=== PATIENT | male | born 1955 | race Caucasian/White ===

== ENCOUNTER 2018-03-13 10:27 | Inpatient (IN) ==
[2018-03-13] MEDS ORDERED: Azithromycin 500 MG in D5% in Water 250 ML IVPB ONE (10:43)
[2018-03-13] MEDS ORDERED: Ipratropium/Albuterol Neb 3 ML IH ONE (10:43)
[2018-03-13] MEDS ORDERED: 0.9 % Sodium Chloride 1,000 ML IVC ONE (10:43)
[2018-03-13] MEDS ORDERED: methylPREDNISolone 125 MG/2 ML VIAL IVP ONE (10:43)
[2018-03-13] MEDS ORDERED: cefTRIAXone 1,000 MG in Water for inj. (sterile) 20 ML 10 ML IVP ONE (10:43)
[2018-03-13] MEDS ORDERED: Isovue-370 500 ML INFUS..BTL IV ONE (10:44)
[2018-03-13 12:32] LABS: Red Cell Distribution Width 12.3 % (11.5-14.5)
[2018-03-13 12:37] LABS: Basophils % 0.8 %; Eosinophils # 0.1 K/mcL (0.0-0.6); Eosinophils % 1.3 %; Hematocrit 32.6 % (37.5-50.1); Hemoglobin 12.2 g/dL (12.9-16.9); Immature Granulocytes % 1.1 % (0-4); Lymphocytes # 0.7 K/mcL (0.6-4.6); Lymphocytes % 13.8 %; Mean Corpuscular Hemoglobin 32.5 pg (28.0-33.3); Mean Corpuscular Volume 86.9 fL (83.0-100.0); Mean Platelet Volume 8.1 fL (9.4-12.4); Monocytes # 0.8 K/mcL (0.0-1.3); Monocytes % 15.3 %; Neutrophils # 3.6 K/mcL (1.6-8.9); Platelet Count 262 K/mcL (140-400); Red Blood Count 3.75 M/mcL (4.19-5.50); Segmented Neutrophils % 67.7 %
[2018-03-13 12:43] LABS: INR 1.1; Prothrombin Time 12.4 Seconds (9.4-12.1)
[2018-03-13 13:00] LABS: Troponin I < 0.03 ng/mL (< 0.04)
--- NOTE | 2018-03-13 13:15 | Emergency Department Note ---
Disposition Clinical Impression: Hyponatremia, Hypochloremia, Alcohol abuse, Tobacco abuse Disposition: Admitted As Inpatient Condition: Fair Referrals: Luther Figueroa DO [Primary Care Provider] - Time of Disposition: 14:33 SOB HPI - General Chief Complaint: ED Shortness of Breath/Dyspnea Stated Complaint: JOAQUIN,"low bp" Time Seen by Provider: 03/13/18 10:43 Source: patient Mode of arrival: ambulatory Limitations: no limitations Nursing Notes Reviewed: Yes Vital Signs Reviewed: Yes - History of Present Illness Patient presents emergency room by personal vehicle for evaluation of shortness of breath uneasy feeling chest pressure and tightness as well as lightheaded and dizziness. Patient has felt like he has not been able to get his air all morning today. He denies any history of cardiac related illness or disease. Denies any trauma or injury. Currently denying any nausea vomiting or diarrhea , fevers, chills, chest pain at this time. Patient has no other complaints but does appear to be in some respiratory distress and very uncomfortable. 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: moderate Consistency/Duration: intermittent Improves with: nothing Worsens with: exertion Associated symptoms: Reports: chest pain, cough, sputum production, orthopnea Treatment prior to arrival: none - Related Data Home Medications Medication Instructions Recorded Confirmed Losartan 12/27/17 Previous Rx's Medication Instructions Recorded Albuterol Sulfate [Albuterol 2 puff IH Q4HR #1 hfa.aer.ad 12/27/17 Inhaler] Azithromycin [Azithromycin 6-Tab 250 mg PO PER PKG DI #6 tab 12/27/17 Pack] Benzonatate [Tessalon] 100 mg PO TID #15 capsule 12/27/17 PredniSONE [Deltasone] 20 mg PO DAILY #12 tablet 12/27/17 Allergies Allergy/AdvReac Type Severity Reaction Status Date / Time No Known Allergies Allergy Verified 03/13/18 10:31 Review of Systems: As Per HPI Constitutional: Denies: fever, chills, weakness Cardiovascular: Reports: chest pain, dyspnea on exertion, orthopnea. Denies: palpitations, edema Respiratory: Reports: cough Gastrointestinal: Denies: abdominal pain, nausea, vomiting, diarrhea Genitourinary: Denies: dysuria, frequency Musculoskeletal: Denies: back pain, neck pain Integumentary: Denies: rash, abrasion Neurological: Reports: weakness. Denies: headache Endocrine: Reports: fatigue Past Medical History - Past Medical History Attestation: Yes The following information was validated with the patient. Source: patient Medical history: Reports: non-contributory, hypertension Psychiatric history: Reports: no psych history - Social History Smoking Status: Current every day smoker Smokeless Tobacco Status: No Alcohol use: Reports: occasionally Drug use: Reports: none Physical Exam - General Limitations: no limitations General appearance: alert, in no apparent distress - Head Head exam: atraumatic, normocephalic, normal inspection - ENT ENT exam: normal exam, normal oropharynx, mucous membranes moist - Neck Neck exam: Present: normal inspection, full ROM, trachea midline. Absent: tenderness, lymphadenopathy - Chest Chest inspection: Present: normal inspection, symmetric chest wall rise. Absent : tenderness - Respiratory Respiratory exam: Present: normal lung sounds bilaterally, respiratory distress. Absent: wheezes, stridor, accessory muscle use - Cardiovascular Cardiovascular exam: Present: regular rate, normal rhythm, normal heart sounds - Abdominal Exam Abdominal exam: Present: soft, Non-Tender, normal bowel sounds. Absent: tenderness, distention, guarding, rebound, rigidity, Bonilla's sign, Rovsing's sign, tenderness at McBurney's Point - Extremities Exam Extremities exam: Present: normal inspection, full ROM, normal capillary refill. Absent: tenderness, pedal edema - Back Exam Back exam: Present: normal inspection, full ROM. Absent: tenderness - Neurological Exam Neurological exam: Present: alert, oriented X3, CN II-XII intact, normal gait - Skin Skin exam: Present: warm, dry, intact, normal color Course Course Narrative: Patient seen and examined the time of arrival. See history of present illness. 62-year-old male presents emergency room to Uncomfortable and tachycardic. He is diaphoretic on presentation. Is describing an unsettling sensation across his chest wall with pressure and discomfort that goes into his abdomen. Patient has no other medical history except for hypertension for which he takes 1 medication at home. He denies any recent illnesses. Denies any trauma. Denies any headache vision changes nausea vomiting or diarrhea. The onset of the symptoms of this morning including a chest pressure but no specific pain along with the persistent shortness of breath. Patient on my evaluation appears to be in some moderate distress most likely from a combination of anxiety, abnormal sensations and chest as well as abdomen. Lungs have coarse breath sounds at the left sided to clear when he coughs. to auscultation heart is regular. Abdomen is soft. He does describe some discomfort. There is no point tenderness guarding or rigidity. Patient is conversational without any dyspnea. His vital signs are stable and evaluation. Patient is afebrile. Patient ambulate around the emergency room without any difficulty. He denies any other medical issues trauma or injury at this point. Screening labs will be completed CBC chemistry was EKG troponin chest x-ray. 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 Patient is hemodynamically stable at this point. CT was called this time the patient with her lab without any renal function testing and this point. Disposition to be determined once full demonstrated. Patient had EKG and labs reviewed. - Reevaluation(s) Reevaluation #1: Initial EKG was read by the computer as possible inferior myocardial infarction. There appears to be some wandering nautical conduction related issues. Patient has not had any chest pain. The hydraulic billet maker Dr. Sheffield was in the emergency room at that time and I did review it with him at approximately 1100 hrs. he agreed to continue symptomatic control for the other issues and repeat EKG and trend troponins. Patient does not require any acute intervention at this point. EKG was repeated at 1200 hours showing sinus rhythm with a stable first-degree heart block with no other acute pathology. No acute signs of ST segment elevation CT angiography the chest and abdomen are unremarkable for acute signs of aneurysm or dissection. Patient's labs are still pending. Disposition to be determined. Patient was started on antibiotics secondary to bronchitis read on the CT scan patient does have a stable soft nodule in the left lung that is never been evaluated. Time: 11:25 Reevaluation #2: Labs are resulted showing patient has profound hyponatremia, hypochloremia. This information was discussed with the on-call electrical electronics engineers Dr. Aguilera. Labs were reviewed as well as recommendations for serum osmolality, serum uric acid, urine osmolality and urine sodium. These labs were added on. Patient will be admitted to the ICU for management. Repeat labs were drawn to confirm that this was not appropriate laboratory evaluation not a lab air. Patient is otherwise clinically stable in no distress. Nephrology did recommend maintenance fluids being started with normal saline and slow correction of the sodium at this time. Nephrology nurse practitioner was done at the bedside and was discussed with the patient and despite multiple conversations in the past the patient did disclose to the electrical electronics engineers that he does drink approximately 6 beers a day as well as smokes approximately 10 cigarettes a day. He did not discloses an initial evaluations in conversations we had at the bedside. Patient is concerning for SIADH as well as other pathology for the hyponatremia. Patient will be admitted at this time Time: 14:28 Vital Signs Temperature 97.4 F L 03/13/18 10:32 Pulse Rate 82 03/13/18 10:32 Respiratory Rate 32 03/13/18 10:32 Blood Pressure 139/87 03/13/18 10:32 O2 Sat by Pulse Oximetry 100 03/13/18 10:32 Temperature 97.4 F L 03/13/18 11:14 Pulse Rate 78 03/13/18 13:05 Respiratory Rate 18 03/13/18 13:05 Blood Pressure 155/90 03/13/18 13:05 O2 Sat by Pulse Oximetry 99 03/13/18 13:05 Oxygen Delivery Oxygen Delivery Room Air Shortness of Breath/Dyspnea - MDM Narrative Medical decision making narrative: Hyponatremia, chest tightness - Medical Records Medical records reviewed: Yes I reviewed the patient's medical records. - Lab Data Lab results reviewed: Yes I reviewed the patient's lab results. Lab Results 03/13/18 03/13/18 03/13/18 Range/Units 12:18 12:18 12:18 PT 12.4 H (9.4-12.1) Seconds INR 1.1 APTT 30.0 (26.0-36.0) Seconds Lactic Acid 1.1 (0.5-2.2) mmol/L Troponin I < 0.03 (< 0.04) ng/mL B-Natriuretic Peptide (Less than 100) pg/mL 03/13/18 Range/Units 12:18 PT (9.4-12.1) Seconds INR APTT (26.0-36.0) Seconds Lactic Acid (0.5-2.2) mmol/L Troponin I (< 0.04) ng/mL B-Natriuretic Peptide 33 (Less than 100) pg/mL - Radiology Data Radiology results reviewed: Yes I reviewed the patient's radiology results. CT angiography the chest and abdomen are unremarkable for acute pathology this time. - EKG Data EKG attestation: Yes I reviewed and interpreted this EKG. EKG results narrative: EKG shows sinus rhythm. Ventricular rate of 75. [place] interval 201. QRS duration of 125. QTC of 437. [place] appears to be normal. Concern for slight elevation in leads 23 aVF. No reciprocal changes noted. Also slight elevation in V5 V6. This EKG was reviewed with the hydraulic billet maker Dr. Sheffield at 1050. No acute STEMI called at that time. Recommended continue evaluation. EKG #2. EKG shows sinus rhythm with a ventricular rate is 74. [place] interval 217. QRS duration 110. QTC of 447. [place] is remain stable. No acute signs of ST segment elevation or abnormality. No acute signs of WPW or Brugada syndrome. No comparable EKGs for evaluation.
[2018-03-13 13:22] LABS: BUN/Creatinine Ratio 11 (6-26); Blood Urea Nitrogen 10 mg/dL (8-23); Calcium 8.9 mg/dL (8.6-10.3); Carbon Dioxide 22 mEq/L (23-29); Chloride 78 mEq/L (98-107); Glucose 97 mg/dL (70-105); Osmolality,Calculated 229 (280-300); Potassium 3.3 mEq/L (3.5-5.1); Sodium 110 mEq/L (136-145); eGFR For African Americans > 60 (> 60); eGFR For Non-African Americans > 60 (> 60)
[2018-03-13 13:46] LABS: Mean Corpuscular HGB Conc 37.4 g/dL (31.6-35.5)
[2018-03-13] MEDS ORDERED: 0.9 % Sodium Chloride 1,000 ML IVC SCH ×2 (14:00→21:48)
[2018-03-13] MEDS ORDERED: Thiamine (B-1) 100 MG in D5% in Water 50 ML IVPB STA (14:30)
[2018-03-13 14:31] LABS: BUN/Creatinine Ratio 11 (6-26); Blood Urea Nitrogen 10 mg/dL (8-23); Calcium 9.2 mg/dL (8.6-10.3); Carbon Dioxide 24 mEq/L (23-29); Chloride 79 mEq/L (98-107); Glucose 126 mg/dL (70-105); Osmolality,Calculated 233 (280-300); Potassium 3.6 mEq/L (3.5-5.1); Sodium 111 mEq/L (136-145); eGFR For African Americans > 60 (> 60); eGFR For Non-African Americans > 60 (> 60)
[2018-03-13] MEDS ORDERED: Folic Acid 1 MG in D5% in Water 50 ML IVPB STA (14:31)
--- NOTE | 2018-03-13 14:53 | Nephrology Consult Note ---
Date of Encounter: 03/13/18 Time of Encounter: 14:38 Assessment and Plan (1) Hyponatremia Current Visit: Yes Status: Acute Will check NA at 1700, and then trend accordingly. NS @ 125/hr. Serum and urine studies pending. (2) Hypochloremia Current Visit: Yes Status: Acute Per primary team. History of Present Illness - Reason for Consult Consult date: 03/13/18 hyponatremia Requesting physician: Jim Benjamin - Chief Complaint Feeling Lightheaded and dizziness. - History of Present Illness Mr. Noonan is a 62 year old Male who presented to the ED for shortness of breath and an "uneasy" feeling in his chest. PMH: HTN. Denies any of those symptoms upon examination. Denies nausea/vomiting/diarrhea. Has not seen a nephologist in the past. No family history of kidney problems that he knows of. Initial NA was 110, repeat was 111. Did receive a liter bolus, maintenance fluid at 125 has been ordered. No recent medication changes, denies any OTC or herbal medications. Admits to cutting back with both ETOH and cigarettes recently. Admits to 6 beers a day almost every day and 10-12 cigarettes a day. Will be careful with NA replacement, will not replace more than 6-8 meq's in a 24 hour period. No signs of dehydration, serum labs and urine studies pending. Past Med Surg Social Fam HX - Past Medical History Medical history: non-contributory, hypertension Psychiatric history: no psych history - Social History Smoking Status: Current every day smoker Smokeless Tobacco Status: No Alcohol use: occasionally Drug use: none Medications and Allergies Albuterol Sulfate [Albuterol Inhaler] 2 puff IH Q4HR #1 hfa.aer.ad 12/27/17 [Rx] Azithromycin [Azithromycin 6-Tab Pack] 250 mg PO PER PKG DI #6 tab 12/27/17 [Rx] Benzonatate [Tessalon] 100 mg PO TID #15 capsule 12/27/17 [Rx] Losartan 12/27/17 [History] PredniSONE [Deltasone] 20 mg PO DAILY #12 tablet 12/27/17 [Rx] 3 Allergy/AdvReac Type Severity Reaction Status Date / Time No Known Allergies Allergy Verified 03/13/18 10:31 Review of Systems ROS unobtainable: other (as per HPI) Exam - Vital Signs Vital signs: Initial Vital Signs Temp Pulse Resp BP Pulse Ox 97.4 F L 82 32 139/87 100 03/13/18 10:32 03/13/18 10:32 03/13/18 10:32 03/13/18 10:32 03/13/18 10:32 Vital Signs - Last 8 Hours Temp Pulse Resp BP Pulse Ox 03/13/18 13:40 81 18 152/90 98 03/13/18 13:05 78 18 155/90 99 03/13/18 11:50 14 100 03/13/18 11:18 76 18 107/84 99 03/13/18 11:14 97.4 F L 82 32 139/87 100 03/13/18 10:32 97.4 F L 82 32 139/87 100 Intake and Output 03/12/18 03/13/18 03/13/18 23:59 07:59 15:59 Intake Total 1010 / 1010 Balance 1010 / 1010 Intake: IV Fluids 1010 / 1010 0.9 % Sodium Chloride 1,000 ML 1000 / 1000 @ 3750 mls/hr IVC .Q16M ONE Rx# :[id number] Rocephin 1,000 MG In Water for inj. (sterile) 10 ML @ 600 mls/ hr IVP ONCE ONE Rx#:[id number] Other: Weight 92.986 kg Patient Weight 03/13/18 23:59 Weight 92.986 kg - General Appearance General appearance: well-developed, well-nourished, appears started age EENT: ATNC, hearing intact, vision intact Neck: supple Respiratory: clear Cardiology: no edema, normal S1, normal S2 Gastrointestinal: normoactive bowel sounds, no tenderness, no guarding Integumentary: no rash, warm and dry Neurologic: alert and oriented x3 Psychiatric: mood/affect appropriate, cooperative Results - Lab Results 03/13/18 12:18 03/13/18 13:42 Most recent lab results Calcium 9.2 mg/dL (8.6-10.3) 03/13/18 13:42 Consult Discharge Plan - Plan Referrals: Luther Figueroa DO [Primary Care Provider] -
[2018-03-13 15:47] LABS: Thyroid Stimulating Hormone 1.167 mcIU/mL (0.340-5.600); Uric Acid 2.5 mg/dL (2.3-7.6)
--- NOTE | 2018-03-13 15:59 | Pulmonology History & Physical ---
<JazmynmackGiana chavez M - Last Filed: 03/13/18 16:13> Date of Encounter: 03/13/18 History of Present Illness HPI: Mr. Noonan is a 62 year old male Medications and Allergies Cetirizine HCl [All Day Allergy] 10 mg PO DAILY PRN 03/13/18 [History] Losartan/Hydrochlorothiazide [Losartan-Hctz 100-25 mg Tab] 1 tab PO DAILY [History] 3 Allergy/AdvReac Type Severity Reaction Status Date / Time No Known Allergies Allergy Verified 03/13/18 15:30 All Systems: The remainder of the systems were reviewed and are negative Physical Examination Vital Signs: Vital Signs, Last 4 Hours Pulse Resp BP Pulse Ox 03/13/18 16:12 82 18 144/92 99 Results - Laboratory Findings CBC and BMP: 03/13/18 12:18 03/13/18 13:42 PT/INR, D-dimer PT 12.4 Seconds (9.4-12.1) H 03/13/18 12:18 Abnormal lab findings: Abnormal lab results RBC 3.75 M/mcL (4.19-5.50) L 03/13/18 12:18 Hgb 12.2 g/dL (12.9-16.9) L 03/13/18 12:18 Hct 32.6 % (37.5-50.1) L 03/13/18 12:18 MCHC 37.4 g/dL (31.6-35.5) H 03/13/18 12:18 MPV 8.1 fL (9.4-12.4) L 03/13/18 12:18 PT 12.4 Seconds (9.4-12.1) H 03/13/18 12:18 Sodium 111 mEq/L (136-145) L* 03/13/18 13:42 Chloride 79 mEq/L (98-107) L 03/13/18 13:42 Glucose 126 mg/dL (70-105) H 03/13/18 13:42 Serum Osmolality 245 mOsm/kg (280-300) L 03/13/18 15:01 Calculated Osmolality 233 (280-300) L 03/13/18 13:42 - Attending Attestation I examined this patient and my medical decision-making was reviewed with the Resident Physician. I agree with the documented findings, disposition and treatment plan as described except to the extent set forth below. Patient seen and examined. Labs, radiology, chart personally reviewed. Agree with resident's history and physical, assessment, plan with following comments: SUPERVISOR STATEMENT CLERKS: Patient follows commands, Pulmonary: Acceptable oxygenation and ventilation Cardiovascular: stable GI: Nutrition per dietary and GI prophylaxis per routine Heme: DVT prophylaxis per routine Renal; urine out put and renal funtion reviewed. Patient with hyponatremia which is most likely secondary to history of alcohol and advised patient to avoid drinking excessive water and also alcohol and there is also possibility of hypovolemia hypernatremia. Agree with nephrology recommendations. Patient will be monitored in ICU and frequent checking of his sodium level to avoid overcorrection more than 10-12 milliequivalent correction over 24 hours. Patient may need 3% sodium chloride if he does not respond appropriately. Endorcine: blood glucose is monitored Lines: all lines checked and no evidence of infections Skin: skin care to prevent pressure ulcers per nursing routine care Discussed with patient and his family at the bedside. <Jonathan George - Last Filed: 03/13/18 19:41> Date of Encounter: 03/13/18 Time of Encounter: 15:59 Assessment and Plan (1) Hyponatremia Current visit: Yes Status: Acute - Noted sodium of 110 on presentation to emergency room - Possible etiologies including beer potomania vs SIADH - Urine studies pending, osm and Na - Nephrology consulted in the emergency department, appreciate recommendations - Euvolemic on exam - Started on NS at 125mL/hr Plan - Continue NS at 125/hr - Sodium checks q2 hours - Fluid restrict of 1.5L/day - Goal Na of 118 by AM, will adjust accordingly. (2) Hypertension Current visit: Yes Status: Chronic - History of hypertension controlled with lisinopril/hydrochlorothiazide - Holding in the setting of hyponatremia, hypochloremia - We will add hydralazine 10 mg every 6 hours when necessary to control blood pressure Qualifiers: Hypertension type: essential hypertension Qualified Code(s): I10 - Essential (primary) hypertension (3) Hypochloremia Current visit: Yes Status: Acute - Chloride of 79, unclear etiology aside from possible beer potomania as above. - Getting NS at 125/hr - Will continue to monitor. (4) Alcohol abuse Current visit: Yes Status: Acute - As above for hyponatremia - CIWA protocol - Last drink yesterday - No history of withdrawal (5) Tobacco abuse Current visit: Yes Status: Acute - Patient states that his cut down to approximately 6-10 cigarettes per day - Encouraged to quit, patient considering (6) DVT prophylaxis Current visit: Yes Status: Acute Subcutaneous heparin History of Present Illness Chief complaint: weakness, lightheaded HPI: Mr. Noonan is a 62 year old male with past medical history of hypertension presents to emergency room with complaint of weakness, lightheadedness, muscle aches. He states that the muscle aches from present for the past month and the weakness and lightheadedness since this morning. He states that he was drinking a cup of coffee and began to experience stars in his vision and felt weak and like he was going to pass out. At that time he called and his was working in the yard and stated that he felt like "he was going to ". He states that he never lost consciousness however when transitioning to a wheelchair coming to the emergency room he felt extremely weak at that time. He has never expresses symptoms in the past. No preceding symptoms and nothing makes it better or worse. Denies any symptoms of chest pain, palpitations, shortness breath, nausea, vomiting, diarrhea, hematochezia, melena, numbness or tingling. Denies any symptoms of confusion. He states that at this time, he is asymptomatic aside for some residual weakness. He denies any past medical history aside from his high blood pressure. Admits to tobacco abuse smoking approximately 6-10 cigarettes per day. Also admits to alcohol abuse drinking somewhere from 6-10 beers per day. He was previously drinking more but states it never went over 12 beers per day. In the emergency room, vitals were unremarkable. Labs were significant for anemia with H/H 12.2/32.6, sodium of 110, potassium 3.3, osmolality of 245. Remainder of labs within normal limits. CTA was performed in emergency department and showed mild central bronchial wall thickening, 3 mm nodule, otherwise no acute findings. Nephrology was consulted emergency department. He was admitted to the ICU for further management of hyponatremia Past Med Surg Social Fam HX - Past Medical History Medical history: non-contributory, hypertension Psychiatric history: no psych history - Social History Smoking Status: Current every day smoker Smokeless Tobacco Status: No Alcohol use: occasionally Drug use: none All Systems: The remainder of the systems were reviewed and are negative Review of Systems: - Constitutional: Admits to generalized fatigue, weakness. Denies fevers, chills, weight loss, - EENT: Admits to vision changes. Denies tinnitus, auditory changes, rhinorrhea , congestion, sore throat, odynaphagia - CVS: Denies chest pain, palpitations, PEDRO, orthopnea, edema, PND, - Pulm: Denies SOB, cough, sputum, hematemesis, wheezing - GI: Denies abdominal pain, anorexia, nausea, vomiting, diarrhea, constipation , melena - : Denies dysuria, increased frequency, urgency, hematuria, - Skin: Denies rashes, ulcers, color changes, - Neuro: Denies MORAN, paresthesias, focal deficits, ataxia, Physical Examination Gen.: Vitals noted. No acute distress. AAOx3 HEENT: PERRL/EOMI, oropharynx clear, Normocephalic, atraumatic, MMM Cardiac: RRR, no murmur, +S1/S2 Pulmonary: Mild wheezes on left, otherwise clear to auscultation, equal chest expansion Abdomen: soft, nontender, BS noted, no guarding, no rebound. MSK: ROM intact, no joint swelling noted Extremities: no BLE edema, nontender calf, no cyanosis or clubbing Neuro: A&Ox3, moves all extremities, no focal deficits Psych: Appropriate mood and behavior Results - Laboratory Findings CBC and BMP: 03/13/18 12:18 03/13/18 17:55 PT/INR, D-dimer PT 12.4 Seconds (9.4-12.1) H 03/13/18 12:18 Abnormal lab findings: Abnormal lab results RBC 3.75 M/mcL (4.19-5.50) L 03/13/18 12:18 Hgb 12.2 g/dL (12.9-16.9) L 03/13/18 12:18 Hct 32.6 % (37.5-50.1) L 03/13/18 12:18 MCHC 37.4 g/dL (31.6-35.5) H 03/13/18 12:18 MPV 8.1 fL (9.4-12.4) L 03/13/18 12:18 PT 12.4 Seconds (9.4-12.1) H 03/13/18 12:18 Sodium 111 mEq/L (136-145) L* 03/13/18 13:42 Chloride 79 mEq/L (98-107) L 03/13/18 13:42 Glucose 126 mg/dL (70-105) H 03/13/18 13:42 Calculated Osmolality 233 (280-300) L 03/13/18 13:42
[2018-03-13] MEDS ORDERED: hydrALAZINE 10 MG TABLET PO PRN (19:26)
[2018-03-13] MEDS ORDERED: Naloxone 0.4 MG/ML INJ IVP PRN (19:30)
[2018-03-13] MEDS ORDERED: Acetaminophen 325 MG TABLET PO PRN (19:30)
[2018-03-14 04:25] LABS: Basophils % 0.1 %
[2018-03-14 04:27] LABS: Eosinophils % 0.1 %; Hematocrit 33.5 % (37.5-50.1); Hemoglobin 12.3 g/dL (12.9-16.9); Immature Granulocytes % 0.6 % (0-4); Lymphocytes # 0.6 K/mcL (0.6-4.6); Lymphocytes % 7.4 %; Mean Corpuscular HGB Conc 36.7 g/dL (31.6-35.5); Mean Corpuscular Hemoglobin 31.8 pg (28.0-33.3); Mean Corpuscular Volume 86.6 fL (83.0-100.0); Mean Platelet Volume 8.2 fL (9.4-12.4); Monocytes # 0.8 K/mcL (0.0-1.3); Monocytes % 9.2 %; Platelet Count 310 K/mcL (140-400); Red Blood Count 3.87 M/mcL (4.19-5.50); Red Cell Distribution Width 12.3 % (11.5-14.5); Segmented Neutrophils % 82.6 %
[2018-03-14 04:29] LABS: Neutrophils # 6.9 K/mcL (1.6-8.9)
[2018-03-14 04:58] LABS: BUN/Creatinine Ratio 17 (6-26); Blood Urea Nitrogen 15 mg/dL (8-23); Calcium 9.7 mg/dL (8.6-10.3); Carbon Dioxide 23 mEq/L (23-29); Chloride 88 mEq/L (98-107); Glucose 132 mg/dL (70-105); Magnesium 1.7 mg/dL (1.6-2.6); Osmolality,Calculated 251 (280-300); Phosphorous 2.1 mg/dL (2.7-4.5); Potassium 3.7 mEq/L (3.5-5.1); Sodium 119 mEq/L (136-145); eGFR For African Americans > 60 (> 60); eGFR For Non-African Americans > 60 (> 60)
[2018-03-14] MEDS ORDERED: *HR* Heparin 5,000 UNIT/ML VIAL SQ SCH (06:00)
--- NOTE | 2018-03-14 07:04 | Electrocardiograph Report ---
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
--- NOTE | 2018-03-14 07:06 | Electrocardiograph Report ---
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
[2018-03-14] MEDS ORDERED: *HR* LORazepam 2 MG/ML VIAL IVP PRN ×2 (08:42→09:25)
--- NOTE | 2018-03-14 08:45 | Pulmonology Progress Note ---
<Jonathan George - Last Filed: 03/14/18 13:20> Date of Encounter: 03/14/18 Time of Encounter: 08:45 Assessment and Plan (1) Hyponatremia Current Visit: Yes Status: Acute - Noted sodium of 110 on presentation to emergency room, improved to 121 this morning - Possible etiologies including beer potomania vs SIADH versus hydrochlorothiazide home medication - Urine studies show low osmolality of 163 and urine sodium of 23.1 - Nephrology consulted in the emergency department, appreciate recommendations - Euvolemic on exam - Started on NS at 125mL/hr which was stopped last evening due to sodium rising 11 and 19 hours Plan - Discussed with nephrology - Continue NS at 75/hr, sodium replacement tablets - Sodium checks q6 hours - Fluid restrict of 1.5L/day - Goal Na of 132 by AM, will adjust accordingly. (2) Hypertension Current Visit: Yes Status: Chronic - History of hypertension controlled with lisinopril/hydrochlorothiazide - Holding in the setting of hyponatremia, hypochloremia - We will add hydralazine 10 mg every 6 hours when necessary to control blood pressure Qualifiers: Hypertension type: essential hypertension Qualified Code(s): I10 - Essential (primary) hypertension (3) Hypochloremia Current Visit: Yes Status: Acute - Chloride of 79, unclear etiology aside from possible beer potomania as above. - Improved today - Getting NS at 75/hr - Will continue to monitor. (4) Alcohol abuse Current Visit: Yes Status: Acute - As above for hyponatremia - CIWA protocol - Last drink on day of admission - No history of withdrawal - Vitamin replacement (5) Tobacco abuse Current Visit: Yes Status: Acute - Patient states that his cut down to approximately 6-10 cigarettes per day - Encouraged to quit, patient considering - Nicotine patch (6) DVT prophylaxis Current Visit: Yes Status: Acute Subcutaneous heparin Subjective Principal diagnosis: Hyponatremia Interval history: Patient was seen and examined at bedside this morning. He states that overall he feels back to his normal self. No complaints of dizziness, weakness, nausea , vomiting, chest pain, shortness of breath. Discussion was had this morning about both smoking and alcohol cessation. He states that he is eager to quit smoking and possible for cutting back on alcohol. Objective PUL Vital signs: Last Vital Signs Temp 98.0 F 03/14/18 08:00 Pulse 96 03/14/18 08:00 Resp 18 03/14/18 08:00 BP 155/105 03/14/18 08:00 Pulse Ox 98 03/14/18 08:00 Gen.: Vitals noted. No acute distress. AAOx3 HEENT: PERRL/EOMI, oropharynx clear, Normocephalic, atraumatic, MMM Cardiac: RRR, no murmur, +S1/S2 Pulmonary: CTA bilaterally, no wheezes, rales or rhonchi, equal chest expansion Abdomen: soft, nontender, BS noted, no guarding, no rebound. MSK: ROM intact, no joint swelling noted Extremities: no BLE edema, nontender calf, no cyanosis or clubbing, ganglion cyst present on right wrist Neuro: A&Ox3, moves all extremities, no focal deficits Psych: Appropriate mood and behavior Results - Laboratory Findings CBC and BMP: 03/14/18 03:57 03/14/18 10:38 PT/INR, D-dimer PT 12.4 Seconds (9.4-12.1) H 03/13/18 12:18 Abnormal lab findings: Abnormal lab results RBC 3.87 M/mcL (4.19-5.50) L 03/14/18 03:57 Hgb 12.3 g/dL (12.9-16.9) L 03/14/18 03:57 Hct 33.5 % (37.5-50.1) L 03/14/18 03:57 MCHC 36.7 g/dL (31.6-35.5) H 03/14/18 03:57 MPV 8.2 fL (9.4-12.4) L 03/14/18 03:57 PT 12.4 Seconds (9.4-12.1) H 03/13/18 12:18 Sodium 121 mEq/L (136-145) L 03/14/18 07:30 Chloride 88 mEq/L (98-107) L 03/14/18 03:57 Glucose 132 mg/dL (70-105) H 03/14/18 03:57 POC Glucose 181 mg/dL (70-99) H 03/13/18 17:38 Serum Osmolality 245 mOsm/kg (280-300) L 03/13/18 15:01 Calculated Osmolality 251 (280-300) L 03/14/18 03:57 Phosphorus 2.1 mg/dL (2.7-4.5) L 03/14/18 03:57 Urine Osmolality 163 mOsm/kg (300-1090) L 03/13/18 22:39 - Clinical Findings Intake & Output: Intake & Output 03/13/18 03/14/18 03/14/18 23:59 07:59 15:59 Intake Total 688 / 688 568 / 568 Output Total 1175 / 1175 770 / 770 Balance -487 / -487 -202 / -202 Weight 92.6 kg 92.6 kg Consult Discharge Plan - Plan Referrals: Luther Figueroa, DO [Primary Care Provider] - <Giana So - Last Filed: 03/14/18 16:36> Date of Encounter: 03/14/18 Objective PUL Vital signs: Last Vital Signs Temp 98.5 F 03/14/18 15:59 Pulse 92 03/14/18 15:59 Resp 18 03/14/18 15:59 BP 140/90 03/14/18 15:59 Pulse Ox 93 03/14/18 15:59 Results - Laboratory Findings CBC and BMP: 03/14/18 03:57 03/14/18 10:38 PT/INR, D-dimer PT 12.4 Seconds (9.4-12.1) H 03/13/18 12:18 Abnormal lab findings: Abnormal lab results RBC 3.87 M/mcL (4.19-5.50) L 03/14/18 03:57 Hgb 12.3 g/dL (12.9-16.9) L 03/14/18 03:57 Hct 33.5 % (37.5-50.1) L 03/14/18 03:57 MCHC 36.7 g/dL (31.6-35.5) H 03/14/18 03:57 MPV 8.2 fL (9.4-12.4) L 03/14/18 03:57 PT 12.4 Seconds (9.4-12.1) H 03/13/18 12:18 Sodium 125 mEq/L (136-145) L 03/14/18 10:38 Chloride 88 mEq/L (98-107) L 03/14/18 03:57 Glucose 132 mg/dL (70-105) H 03/14/18 03:57 POC Glucose 181 mg/dL (70-99) H 03/13/18 17:38 Serum Osmolality 245 mOsm/kg (280-300) L 03/13/18 15:01 Calculated Osmolality 251 (280-300) L 03/14/18 03:57 Phosphorus 2.1 mg/dL (2.7-4.5) L 03/14/18 03:57 Urine Osmolality 163 mOsm/kg (300-1090) L 03/13/18 22:39 - Clinical Findings Intake & Output: Intake & Output 03/14/18 03/14/18 03/14/18 07:59 15:59 23:59 Intake Total 568 / 568 736 / 736 Output Total 770 / 770 450 / 450 100 / 100 Balance -202 / -202 286 / 286 -100 / -100 Weight 92.6 kg - Attending Attestation I examined this patient and my medical decision-making was reviewed with the Resident Physician. I agree with the documented findings, disposition and treatment plan as described except to the extent set forth below. Patient seen and examined. Labs, radiology, chart personally reviewed. 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 Hyponatremia is correcting appropriately and nephrology is following the patient. Continue fluid restriction. Patient is stable to be transferred to the floor Endorcine: blood glucose is monitored Lines: all lines checked and no evidence of infections Skin: skin care to prevent pressure ulcers per nursing routine care
[2018-03-14] MEDS ORDERED: Vitamin B Complex/Vit C/Vit E 1 EACH TABLET PO SCH (09:00)
[2018-03-14] MEDS ORDERED: Folic Acid 1 MG TABLET PO SCH (09:00)
[2018-03-14] MEDS ORDERED: Nicotine 7 MG PATCH.TD24 TD SCH (09:00)
[2018-03-14] MEDS ORDERED: Thiamine (B-1) 100 MG TABLET PO SCH (09:00)
--- NOTE | 2018-03-14 09:20 | Nephrology Progress Note ---
Date of Encounter: 03/14/18 Time of Encounter: 09:17 - Assessment and Plan (1) Hyponatremia Current Visit: Yes Status: Acute NA is 121 now, has corrected 11 meq's since admission, Normal Saline slowed to 75ml/hr. Recommend Phosphorous replacement. (2) Hypochloremia Current Visit: Yes Status: Acute Is improving, 88. (3) Hypertension Current Visit: Yes Status: Chronic Per primary team. Qualifiers: Hypertension type: essential hypertension Qualified Code(s): I10 - Essential (primary) hypertension (4) Alcohol abuse Current Visit: Yes Status: Acute Is on CIWA protocol and Thiamine. Subjective Principal diagnosis: JOAQUIN, low hgb Interval history: Pt seen and examined in ICU. Doing well, no complaints. Objective - Vital Signs Vital signs: Vital Signs Temp Pulse Resp BP Pulse Ox 03/14/18 08:59 98.0 F 03/14/18 08:00 98.0 F 96 18 155/105 98 03/14/18 07:00 88 18 115/94 98 03/14/18 06:00 86 18 112/99 100 03/14/18 05:30 97 20 152/88 100 03/14/18 05:27 97.5 F L 03/14/18 04:00 95 18 133/83 100 03/14/18 03:03 103 16 148/87 100 03/14/18 02:00 91 16 135/79 100 03/14/18 01:00 98 18 112/81 100 03/14/18 00:50 98.0 F 03/14/18 00:47 97.6 F 105 22 118/107 100 03/13/18 23:30 87 20 140/89 100 03/13/18 22:30 94 20 139/92 99 03/13/18 21:52 97.7 F 03/13/18 21:00 96 20 171/105 99 03/13/18 20:00 101 24 159/109 100 03/13/18 19:00 97 22 167/116 99 03/13/18 18:00 97.7 F 94 18 180/98 99 03/13/18 16:12 82 18 144/92 99 Intake and Output 03/13/18 03/14/18 03/14/18 23:59 07:59 15:59 Intake Total 688 / 688 568 / 568 736 / 736 Output Total 1175 / 1175 770 / 770 450 / 450 Balance -487 / -487 -202 / -202 286 / 286 Intake: IV Fluids 573 / 573 338 / 338 0.9 % Sodium Chloride 1,000 ML 523 / 523 338 / 338 @ 125 mls/hr IVC .Q8H [facility] Rx#: [id number] Vitamin B-1 100 MG In Dextrose 50 / 50 5% 50 ML @ 50 mls/hr IVPB NOW [facility] Rx#:[id number] Oral 736 / 736 Other 115 / 115 230 / 230 Output: Urine 550 / 550 320 / 320 450 / 450 Catheter 625 / 625 450 / 450 Other: Meal Breakfast Percent of Meal Consumed 100% Weight 92.6 kg 92.6 kg Blood Glucose* 181 Patient Weight 03/14/18 23:59 Weight 92.6 kg - General Appearance General appearance: Present: well-developed, well-nourished, appears started age EENT: Present: ATNC, hearing intact, vision intact Neck: Present: supple Respiratory: Present: clear Cardiology: Present: no edema, normal S1, normal S2 Gastrointestinal: Present: normoactive bowel sounds, no tenderness, no guarding Integumentary: Present: no rash, warm and dry Neurologic: Present: alert and oriented x3 Psychiatric: Present: mood/affect appropriate, cooperative - Lab 03/14/18 03:57 03/14/18 07:30 Most recent lab results Calcium 9.7 mg/dL (8.6-10.3) 03/14/18 03:57 Phosphorus 2.1 mg/dL (2.7-4.5) L 03/14/18 03:57 Magnesium 1.7 mg/dL (1.6-2.6) 03/14/18 03:57 Urine Sodium 23.1 mEq/L 03/13/18 22:28 Consult Discharge Plan - Plan Referrals: Luther Figueroa DO [Primary Care Provider] -
[2018-03-14] MEDS ORDERED: 0.9 % Sodium Chloride 1,000 ML IVC SCH (09:25)
[2018-03-14] MEDS ORDERED: Naloxone 0.4 MG/ML INJ IVP PRN (09:25)
[2018-03-14] MEDS: *HR* Heparin 5,000 UNIT/ML VIAL SQ SCH (17:55)
[2018-03-15] MEDS ORDERED: D5% in Water 1,000 ML IVC SCH ×3 (05:15→20:45)
[2018-03-15 05:47] LABS: Basophils # 0.1 K/mcL (0.0-0.2); Basophils % 1.1 %; Eosinophils # 0.2 K/mcL (0.0-0.6); Eosinophils % 2.4 %; Hematocrit 31.5 % (37.5-50.1); Hemoglobin 11.6 g/dL (12.9-16.9); Immature Granulocytes % 0.7 % (0-4); Lymphocytes # 1.9 K/mcL (0.6-4.6); Mean Corpuscular HGB Conc 36.8 g/dL (31.6-35.5); Mean Corpuscular Hemoglobin 32.8 pg (28.0-33.3); Mean Platelet Volume 8.1 fL (9.4-12.4); Monocytes # 0.8 K/mcL (0.0-1.3); Monocytes % 10.8 %; Neutrophils # 4.4 K/mcL (1.6-8.9); Platelet Count 318 K/mcL (140-400); Red Blood Count 3.54 M/mcL (4.19-5.50)
[2018-03-15] MEDS: *HR* Heparin 5,000 UNIT/ML VIAL SQ SCH ×2 (06:00→17:21)
[2018-03-15 06:04] LABS: BUN/Creatinine Ratio 16 (6-26); Blood Urea Nitrogen 12 mg/dL (8-23); Calcium 9.3 mg/dL (8.6-10.3); Carbon Dioxide 23 mEq/L (23-29); Chloride 95 mEq/L (98-107); Glucose 87 mg/dL (70-105); Osmolality,Calculated 263 (280-300); Potassium 3.5 mEq/L (3.5-5.1); Sodium 127 mEq/L (136-145); eGFR For African Americans > 60 (> 60); eGFR For Non-African Americans > 60 (> 60)
--- NOTE | 2018-03-15 08:32 | Internal Med Progress Note ---
Date of Encounter: 03/15/18 Time of Encounter: 08:00 - Assessment and plan (1) Hyponatremia Current Visit: Yes Status: Acute Assessment and plan: Improved. 127 today. Likely secondary to beer potomania Continue IV fluid, 0.9 normal saline at 125 mL per hour Continue fluid restriction diet. Continue to trend sodium (2) Hypochloremia Current Visit: Yes Status: Acute Assessment and plan: Improving. Likely secondary to beer potomania. Plan as above. (3) Alcohol abuse Current Visit: Yes Status: Chronic Assessment and plan: Pt reports drinking 6-12 beers daily. He denies any visual or auditory hallucinations, tremors, nausea, vomiting, diaphoresis. Continue CIWA Pt reports last drink was Wed. night prior to admission. (4) Tobacco abuse Current Visit: Yes Status: Acute Assessment and plan: Pt denies need for nicotine replacement therapy. Will order Nicoderm patches prn. Continue to financial aid counselor on smoking cessation. (5) DVT prophylaxis Current Visit: Yes Status: Acute Assessment and plan: Heparin SQ. Encourage pt up to chair and ambulate with assistance. (6) Hypertension Current Visit: Yes Status: Chronic Assessment and plan: Well controlled. Continue home medications. Monitor per admission orders. Qualifiers: Hypertension type: essential hypertension Qualified Code(s): I10 - Essential (primary) hypertension - Time Spent With Patient Total time spent is greater than 50% in coordination of care (as documented) at patient's floor/unit and/or counseling patient: less than 15 minutes - Subjective Interval history: Patient seen and assessed at bedside. Patient alert, pleasant, awake, oriented. Patient reports that he wants to go home today. I explained to him that he was not possible and his labs are not stable. Patient appeared to be shocked when I discussed this drinking with him. He told me that he did not think that 6-12 beers daily was a lot. Patient denies any headache, dizziness, vision changes, nausea, vomiting, diarrhea, abdominal pain, chest pain, or shortness of breath. Patient is aware that once his labs are stable, we will revisit discharge. - Constitutional Vitals: Temp Pulse Resp BP Pulse Ox 97.6 F 73 18 137/85 98 03/15/18 07:00 03/15/18 07:00 03/15/18 07:00 03/15/18 07:00 03/15/18 07:00 General appearance: Present: cooperative, A&O X 3, pleasant, no acute distress, answers questions appropriately - Head Head exam: Present: atraumatic, normal inspection, normocephalic - Eye Eye exam: Present: normal appearance, conjuntiva pink, sclera anicteric - Neck Neck exam general surgery: Present: supple, trachea midline. Absent: lymphadenopathy, tenderness - Respiratory Respiratory exam: Present: decreased breath sounds, CTAB. Absent: accessory muscle use, chest wall tenderness, rales, respiratory distress, rhonchi, wheezes - Cardiovascular Cardiovascular exam: Present: RRR, +S1, +S2. Absent: diastolic murmur, gallop, rubs, systolic murmur - GI/Abdominal GI/Abdominal exam: Present: normal bowel sounds, soft, no peritoneal signs. Absent: distended, hepatomegaly, tenderness - Extremities Exam Extremities exam: Present: normal capillary refill, normal inspection, warm, radial pulses palpable and symmetrical. Absent: calf tenderness, cyanotic, pedal edema, tenderness - Neurological Exam Neurological exam: Present: alert, oriented X3, no focal deficits. Absent: motor sensory deficit, facial droop, speech deficit - Skin Skin exam: Present: dry, intact, normal color, warm. Absent: rash Internal Medicine: Result - Labs CBC & Chem 7: 03/15/18 04:36 03/15/18 04:36 Labs: Short CBC 03/15/18 Range/Units 04:36 WBC 7.4 (4.3-11.1) K/mcL Hgb 11.6 L (12.9-16.9) g/dL Hct 31.5 L (37.5-50.1) % Plt Count 318 (140-400) K/mcL Neutrophils # 4.4 (1.6-8.9) K/mcL BMP 03/14/18 03/14/18 03/15/18 10:38 16:40 04:36 Sodium 125 L 126 L 127 L Potassium 3.5 Chloride 95 L Carbon Dioxide 23 BUN 12 Creatinine 0.74 Glucose 87 Calcium 9.3 - ABG Interpretation ABG results: PT/INR, D-dimer PT 12.4 Seconds (9.4-12.1) H 03/13/18 12:18 Consult Discharge Plan - Plan Referrals: Luther Figueroa DO [Primary Care Provider] -
[2018-03-15] MEDS: Folic Acid 1 MG TABLET PO SCH (11:32)
[2018-03-15] MEDS: Vitamin B Complex/Vit C/Vit E 1 EACH TABLET PO SCH (11:32)
[2018-03-15] MEDS: Thiamine (B-1) 100 MG TABLET PO SCH (11:32)
[2018-03-15] MEDS: Nicotine 7 MG PATCH.TD24 TD SCH (11:33)
--- NOTE | 2018-03-15 13:56 | Nephrology Progress Note ---
Date of Encounter: 03/15/18 Time of Encounter: 13:54 - Assessment and Plan (1) Hyponatremia Current Visit: Yes Status: Acute Patient's sodium level is correcting. MIV changed from 0.9 to 0.45 and now he is on D5. Goal to slowly raise the sodium level. He is asymptomatic. Subjective Principal diagnosis: Hyponatremia Interval history: Patient seen. His is at his bedside. He continues to feel better and he would like to leave saturday. Objective - Vital Signs Vital signs: Vital Signs Temp Pulse Resp BP Pulse Ox 03/15/18 10:51 99.2 F 95 18 130/71 98 03/15/18 07:00 97.6 F 73 18 137/85 98 03/15/18 02:48 97.7 F 98 15 156/84 98 03/14/18 23:07 98.1 F 93 16 156/89 99 03/14/18 19:40 98.4 F 87 16 141/88 99 03/14/18 15:59 98.5 F 92 18 140/90 93 Intake and Output 03/14/18 03/15/18 03/15/18 23:59 07:59 15:59 Intake Total 600 / 600 1000 / 1000 620 / 620 Output Total 700 / 700 500 / 500 200 / 200 Balance -100 / -100 500 / 500 420 / 420 Intake: IV Fluids 1000 / 1000 0.45% Sodium Chloride 1000 Ml 1000 / 1000 1000 Ml 1,000 ML @ 75 mls/hr IVC .[id number] [facility] Rx#:[id number] Oral 600 / 600 620 / 620 Output: Urine 700 / 700 500 / 500 200 / 200 Other: Meal Breakfast Percent of Meal Consumed 100% Weight 93.1 kg Blood Glucose* 110 Patient Weight 03/15/18 23:59 Weight 93.1 kg - General Appearance General appearance: Present: well-developed, well-nourished EENT: Present: ATNC Neurologic: Present: alert and oriented x3 Psychiatric: Present: mood/affect appropriate - Lab 03/15/18 04:36 03/15/18 04:36 Most recent lab results Calcium 9.3 mg/dL (8.6-10.3) 03/15/18 04:36 Phosphorus 2.1 mg/dL (2.7-4.5) L 03/14/18 03:57 Magnesium 1.7 mg/dL (1.6-2.6) 03/14/18 03:57 Urine Sodium 23.1 mEq/L 03/13/18 22:28 Consult Discharge Plan - Plan Referrals: Luther Figueroa DO [Primary Care Provider] -
[2018-03-15 15:04] LABS: BUN/Creatinine Ratio 13 (6-26); Blood Urea Nitrogen 13 mg/dL (8-23); Calcium 9.5 mg/dL (8.6-10.3); Carbon Dioxide 26 mEq/L (23-29); Chloride 94 mEq/L (98-107); Glucose 97 mg/dL (70-105); Osmolality,Calculated 266 (280-300); Potassium 3.2 mEq/L (3.5-5.1); Sodium 128 mEq/L (136-145); eGFR For African Americans > 60 (> 60); eGFR For Non-African Americans > 60 (> 60)
[2018-03-16 02:25] LABS: Basophils # 0.1 K/mcL (0.0-0.2); Basophils % 1.5 %; Eosinophils # 0.3 K/mcL (0.0-0.6); Eosinophils % 4.1 %; Hematocrit 30.6 % (37.5-50.1); Hemoglobin 10.9 g/dL (12.9-16.9); Immature Granulocytes % 0.4 % (0-4); Lymphocytes # 1.7 K/mcL (0.6-4.6); Lymphocytes % 24.4 %; Mean Corpuscular HGB Conc 35.6 g/dL (31.6-35.5); Mean Corpuscular Hemoglobin 31.8 pg (28.0-33.3); Mean Corpuscular Volume 89.2 fL (83.0-100.0); Monocytes # 0.9 K/mcL (0.0-1.3); Monocytes % 12.6 %; Neutrophils # 4.1 K/mcL (1.6-8.9); Platelet Count 307 K/mcL (140-400); Red Blood Count 3.43 M/mcL (4.19-5.50)
[2018-03-16 02:53] LABS: BUN/Creatinine Ratio 19 (6-26); Blood Urea Nitrogen 16 mg/dL (8-23); Calcium 9.3 mg/dL (8.6-10.3); Carbon Dioxide 25 mEq/L (23-29); Chloride 98 mEq/L (98-107); Glucose 115 mg/dL (70-105); Osmolality,Calculated 268 (280-300); Potassium 4.2 mEq/L (3.5-5.1); Sodium 128 mEq/L (136-145); eGFR For African Americans > 60 (> 60); eGFR For Non-African Americans > 60 (> 60)
[2018-03-16] MEDS: Acetaminophen 325 MG TABLET PO PRN (04:47)
[2018-03-16] MEDS: *HR* Heparin 5,000 UNIT/ML VIAL SQ SCH ×2 (04:47→17:04)
[2018-03-16] MEDS: Thiamine (B-1) 100 MG TABLET PO SCH (10:14)
[2018-03-16] MEDS: Vitamin B Complex/Vit C/Vit E 1 EACH TABLET PO SCH (10:14)
[2018-03-16] MEDS: Folic Acid 1 MG TABLET PO SCH (10:14)
--- NOTE | 2018-03-16 10:14 | Nephrology Progress Note ---
Date of Encounter: 03/16/18 Time of Encounter: 10:12 - Assessment and Plan (1) Hyponatremia Current Visit: Yes Status: Acute Patient's sodium level is correcting. MIV changed from 0.9 to 0.45 and now he is on D5 to avoid overcorrection.. Goal to slowly raise the sodium level. He is asymptomatic. He describes orthostatic symptoms so we will check orthostatic blood pressure and pulse. Etiology of the hyponatremia is multifactorial and the combination of thiazide diuretic, alcohol use, and possibly a hypovolemic component as well. (2) Hypophosphatemia Current Visit: Yes Status: Acute Repeat labs and replace as needed. Subjective Principal diagnosis: Hyponatremia Interval history: The patient was seen and evaluated. He is lying in bed he is comfortable and has no new complaint. He would like to go home, but is agreeable to going home tomorrow if necessary. Objective - Vital Signs Vital signs: Vital Signs Temp Pulse Resp BP Pulse Ox 03/16/18 07:05 97.7 F 85 18 149/90 98 03/16/18 02:50 98.1 F 80 16 157/95 97 03/15/18 22:59 98.0 F 79 16 141/88 97 03/15/18 19:05 98.2 F 97 16 148/91 92 03/15/18 16:19 98.2 F 75 18 143/86 100 03/15/18 10:51 99.2 F 95 18 130/71 98 Intake and Output 03/15/18 03/16/18 03/16/18 23:59 07:59 15:59 Intake Total 1240 / 1240 260 / 260 Balance 1240 / 1240 260 / 260 Intake: IV Fluids 1000 / 1000 Dextrose 5% 1,000 ML @ 125 mls/ 1000 / 1000 hr IVC .Q8H [facility] Rx#:[id number] Oral 240 / 240 260 / 260 Other: Meal Dinner Percent of Meal Consumed 100% Weight 92.2 kg Patient Weight 03/16/18 23:59 Weight 92.2 kg - General Appearance General appearance: Present: well-developed, well-nourished EENT: Present: ATNC Neck: Present: supple Cardiology: Present: regular rate Integumentary: Present: warm and dry Neurologic: Present: alert and oriented x3 Psychiatric: Present: mood/affect appropriate - Lab 03/16/18 02:00 03/16/18 09:21 Most recent lab results Calcium 9.3 mg/dL (8.6-10.3) 03/16/18 02:00 Phosphorus 2.1 mg/dL (2.7-4.5) L 03/14/18 03:57 Magnesium 1.7 mg/dL (1.6-2.6) 03/14/18 03:57 Urine Sodium 23.1 mEq/L 03/13/18 22:28 Consult Discharge Plan - Plan Referrals: Luther Figueroa DO [Primary Care Provider] -
[2018-03-16] MEDS: Nicotine 7 MG PATCH.TD24 TD SCH (10:15)
[2018-03-16 10:40] LABS: Phosphorous 3.2 mg/dL (2.7-4.5)
--- NOTE | 2018-03-16 16:44 | Internal Med Progress Note ---
Date of Encounter: 03/16/18 Time of Encounter: 09:55 - Assessment and plan (1) Hyponatremia Current Visit: Yes Status: Acute Assessment and plan: 128, fallen to 126 today. Likely secondary to beer potomania 1 liter D5 infused. Nephrology following, I appreciate the recommendations Continue fluid restriction diet. Continue to trend sodium q6h and notify if Na+ > 130. (2) Hypochloremia Current Visit: Yes Status: Acute Assessment and plan: Resolved. Likely secondary to beer potomania. Plan as above. (3) Alcohol abuse Current Visit: Yes Status: Chronic Assessment and plan: Chronic. Continue CIWA Seizure precautions in place. (4) Tobacco abuse Current Visit: Yes Status: Acute Assessment and plan: Pt continues to deny need for nicotine replacement therapy. Will order Nicoderm patches for prn use. (5) DVT prophylaxis Current Visit: Yes Status: Acute Assessment and plan: Heparin SQ. Pt is ambulatory in the room and hallway. (6) Hypertension Current Visit: Yes Status: Chronic Assessment and plan: Hypertensive, pt has prn antihypertensives. Monitor per admission orders. Qualifiers: Hypertension type: essential hypertension Qualified Code(s): I10 - Essential (primary) hypertension - Time Spent With Patient Total time spent is greater than 50% in coordination of care (as documented) at patient's floor/unit and/or counseling patient: less than 15 minutes - Subjective Interval history: Patient seen and assessed at bedside at 0955. Patient alert, pleasant, awake, oriented. He states that he is feeling better and wants to stay until he is back to normal. Patient denies any headache, dizziness, vision changes, nausea, vomiting, diarrhea, abdominal pain, chest pain, or shortness of breath. - Constitutional Vitals: Temp Pulse Resp BP Pulse Ox 98.2 F 89 16 187/94 98 03/16/18 15:35 03/16/18 15:35 03/16/18 15:35 03/16/18 15:35 03/16/18 15:35 General appearance: Present: cooperative, A&O X 3, pleasant, no acute distress, answers questions appropriately - Head Head exam: Present: atraumatic, normal inspection, normocephalic - Eye Eye exam: Present: normal appearance, conjuntiva pink, sclera anicteric - Neck Neck exam general surgery: Present: supple, trachea midline. Absent: lymphadenopathy, tenderness - Respiratory Respiratory exam: Present: CTAB. Absent: accessory muscle use, chest wall tenderness, decreased breath sounds, rales, respiratory distress, rhonchi, wheezes - Cardiovascular Cardiovascular exam: Present: RRR, +S1, +S2. Absent: diastolic murmur, gallop, rubs, systolic murmur - GI/Abdominal GI/Abdominal exam: Present: normal bowel sounds, soft. Absent: distended, hepatomegaly, tenderness - Extremities Exam Extremities exam: Present: normal capillary refill, normal inspection, warm, radial pulses palpable and symmetrical. Absent: calf tenderness, cyanotic, pedal edema - Neurological Exam Neurological exam: Present: alert, oriented X3, no focal deficits. Absent: facial droop, speech deficit - Skin Skin exam: Present: dry, intact, normal color, warm. Absent: rash Internal Medicine: Result - Labs CBC & Chem 7: 03/16/18 02:00 03/16/18 14:21 Labs: Short CBC 03/16/18 Range/Units 02:00 WBC 7.1 (4.3-11.1) K/mcL Hgb 10.9 L (12.9-16.9) g/dL Hct 30.6 L (37.5-50.1) % Plt Count 307 (140-400) K/mcL Neutrophils # 4.1 (1.6-8.9) K/mcL BMP 03/15/18 03/16/18 03/16/18 20:06 02:00 02:00 Sodium 129 L 128 L 128 L Potassium 4.2 D Chloride 98 Carbon Dioxide 25 BUN 16 Creatinine 0.84 Glucose 115 H Calcium 9.3 03/16/18 03/16/18 09:21 14:21 Sodium 127 L 126 L Potassium Chloride Carbon Dioxide BUN Creatinine Glucose Calcium - ABG Interpretation ABG results: PT/INR, D-dimer PT 12.4 Seconds (9.4-12.1) H 03/13/18 12:18 Consult Discharge Plan - Plan Referrals: Luther Figueroa DO [Primary Care Provider] -
[2018-03-16] MEDS: hydrALAZINE 10 MG TABLET PO PRN (17:04)
[2018-03-16] MEDS ORDERED: D5% in Water 1,000 ML IVC SCH (21:15)
--- NOTE | 2018-03-16 22:05 | Event Note ---
Date of Encounter: 03/16/18 Time of Encounter: 21:06 Notified by Leah Lopez CNP that pts. sodium required close monitoring. Pts. sodium was 110 on admission on 03/13, 118 on 03/14, 127 on 03/15, and currently 129 on latest check at 19:42. Instruction from Dr. Natarajan of Nephrology to not let sodium become >130 overnight. Sodium increased 3 mEq today from 126 to 129. Discussed case w/Dr. Alvarenga w/intent to place pt. on D5% in water at low rate to ensure that pt. would not exceed 130 mEq at a slow rate of 50 mL/HR w/ communication order to monitor pts. sodium closely overnight. Next scheduled lab draw at 02:00. Dr. Alvarenga in agreement w/plan. Order for D5% and communication order to monitor placed. Additional sodium level at 06:00 ordered. Pt. and labs to be monitored closely.
[2018-03-17 02:29] LABS: Basophils # 0.1 K/mcL (0.0-0.2); Basophils % 1.6 %; Eosinophils # 0.5 K/mcL (0.0-0.6); Eosinophils % 6.7 %; Hematocrit 31.4 % (37.5-50.1); Hemoglobin 11.2 g/dL (12.9-16.9); Immature Granulocytes % 0.4 % (0-4); Lymphocytes % 24.6 %; Mean Corpuscular HGB Conc 35.7 g/dL (31.6-35.5); Mean Corpuscular Hemoglobin 32.6 pg (28.0-33.3); Mean Corpuscular Volume 91.3 fL (83.0-100.0); Mean Platelet Volume 7.9 fL (9.4-12.4); Monocytes % 11.8 %; Neutrophils # 4.4 K/mcL (1.6-8.9); Nucleated Red Blood Cells 0.2 /100 WBC (0); Platelet Count 320 K/mcL (140-400); Red Blood Count 3.44 M/mcL (4.19-5.50); Red Cell Distribution Width 13.1 % (11.5-14.5); Segmented Neutrophils % 54.9 %
[2018-03-17 02:47] LABS: BUN/Creatinine Ratio 16 (6-26); Blood Urea Nitrogen 15 mg/dL (8-23); Calcium 9.4 mg/dL (8.6-10.3); Carbon Dioxide 23 mEq/L (23-29); Chloride 98 mEq/L (98-107); Glucose 102 mg/dL (70-105); Osmolality,Calculated 267 (280-300); Sodium 128 mEq/L (136-145); eGFR For African Americans > 60 (> 60); eGFR For Non-African Americans > 60 (> 60)
[2018-03-17] MEDS: hydrALAZINE 10 MG TABLET PO PRN (03:25)
[2018-03-17] MEDS: *HR* Heparin 5,000 UNIT/ML VIAL SQ SCH ×2 (06:24→17:55)
[2018-03-17] MEDS: Acetaminophen 325 MG TABLET PO PRN (06:39)
[2018-03-17] MEDS: Folic Acid 1 MG TABLET PO SCH (08:25)
[2018-03-17] MEDS: Vitamin B Complex/Vit C/Vit E 1 EACH TABLET PO SCH (08:25)
[2018-03-17] MEDS: Thiamine (B-1) 100 MG TABLET PO SCH (08:25)
[2018-03-17] MEDS: Nicotine 7 MG PATCH.TD24 TD SCH (08:26)
--- NOTE | 2018-03-17 08:52 | Nephrology Progress Note ---
Date of Encounter: 03/17/18 Time of Encounter: 08:52 - Assessment and Plan (1) Hyponatremia Current Visit: Yes Status: Acute Patient's sodium level is correcting. MIV changed from 0.9 to 0.45 to D5 to avoid overcorrection. He is now off all fluids. Goal to slowly raise the sodium level. He is asymptomatic. Etiology of the hyponatremia is multifactorial and the combination of thiazide diuretic, alcohol use, and possibly a hypovolemic component as well. (2) Hypophosphatemia Current Visit: Yes Status: Acute Repeat phosphorus is normal. Subjective Principal diagnosis: Hyponatremia Interval history: The patient was seen and evaluated. He is sitting in the couch. He is very pleasant. He has no complaints. Objective - Vital Signs Vital signs: Vital Signs Temp Pulse Pulse Pulse Pulse Resp BP 03/17/18 07:21 03/17/18 07:15 98.4 F 77 16 171/97 03/17/18 03:04 98.0 F 84 16 178/104 03/16/18 22:59 98.4 F 95 16 148/96 03/16/18 18:39 98.1 F 95 16 153/89 03/16/18 15:35 98.2 F 89 16 187/94 03/16/18 12:06 71 81 84 03/16/18 11:56 98.2 F 71 16 163/97 BP BP BP BP Pulse Ox 03/17/18 07:21 154/99 139/96 171/97 03/17/18 07:15 100 03/17/18 03:04 99 03/16/18 22:59 97 03/16/18 18:39 100 03/16/18 15:35 98 03/16/18 12:06 193/97 169/96 161/100 03/16/18 11:56 99 Intake and Output 03/16/18 03/17/18 03/17/18 23:59 07:59 15:59 Intake Total 118 / 118 120 / 120 278 / 278 Output Total 375 / 375 1150 / 1150 Balance -257 / -257 -1030 / -1030 278 / 278 Intake: IV Fluids 278 / 278 Dextrose 5% 1,000 ML @ 50 mls/ 278 / 278 hr IVC .Q20H ANTONIO Rx#:[id number] Oral 118 / 118 120 / 120 Output: Urine 375 / 375 1150 / 1150 Other: Weight 92.3 kg Patient Weight 03/17/18 23:59 Weight 92.3 kg - General Appearance General appearance: Present: well-developed, well-nourished EENT: Present: ATNC - Lab 03/17/18 02:10 03/17/18 10:58 Most recent lab results Calcium 9.4 mg/dL (8.6-10.3) 03/17/18 02:10 Phosphorus 3.2 mg/dL (2.7-4.5) 03/16/18 09:21 Magnesium 1.7 mg/dL (1.6-2.6) 03/14/18 03:57 Urine Sodium 23.1 mEq/L 03/13/18 22:28 Consult Discharge Plan - Plan Referrals: Luther Figueroa DO [Primary Care Provider] -
--- NOTE | 2018-03-17 12:27 | Internal Med Progress Note ---
Date of Encounter: 03/17/18 - Assessment and plan (1) Hyponatremia Current Visit: Yes Status: Acute (2) Hypochloremia Current Visit: Yes Status: Acute (3) Alcohol abuse Current Visit: Yes Status: Chronic (4) Tobacco abuse Current Visit: Yes Status: Acute (5) DVT prophylaxis Current Visit: Yes Status: Acute (6) Hypertension Current Visit: Yes Status: Chronic Qualifiers: Qualified Code(s): I10 - Essential (primary) hypertension - Time Spent With Patient Total time spent is greater than 50% in coordination of care (as documented) at patient's floor/unit and/or counseling patient: - Subjective Interval history: Patient seen and assessed at bedside at 0955. Patient alert, pleasant, awake, oriented. He states that he is feeling better and wants to stay until he is back to normal. Patient denies any headache, dizziness, vision changes, nausea, vomiting, diarrhea, abdominal pain, chest pain, or shortness of breath. - Constitutional Vitals: Temp Pulse Resp BP Pulse Ox 98.5 F 87 16 134/91 100 03/17/18 11:07 03/17/18 11:07 03/17/18 11:07 03/17/18 11:07 03/17/18 11:07 General appearance: Present: cooperative, A&O X 3, pleasant, no acute distress, answers questions appropriately Internal Medicine: Result - Labs CBC & Chem 7: 03/17/18 02:10 03/17/18 10:58 Labs: Short CBC 03/17/18 Range/Units 02:10 WBC 8.1 (4.3-11.1) K/mcL Hgb 11.2 L (12.9-16.9) g/dL Hct 31.4 L (37.5-50.1) % Plt Count 320 (140-400) K/mcL Neutrophils # 4.4 (1.6-8.9) K/mcL BMP 03/16/18 03/16/18 03/17/18 14:21 19:42 02:10 Sodium 126 L 129 L 128 L Potassium 4.0 Chloride 98 Carbon Dioxide 23 BUN 15 Creatinine 0.91 Glucose 102 Calcium 9.4 03/17/18 10:58 Sodium 128 L Potassium Chloride Carbon Dioxide BUN Creatinine Glucose Calcium - ABG Interpretation ABG results: PT/INR, D-dimer PT 12.4 Seconds (9.4-12.1) H 03/13/18 12:18 Consult Discharge Plan - Plan Referrals: ColLuther soliman DO [Primary Care Provider] -
--- NOTE | 2018-03-17 12:31 | Discharge Summary ---
- NOTES TO OUTPATIENT PROVIDER Notes to Outpatient Provider: Pt was admitted for shortness of breath, weakness. Pt was found to be hyponatremic with initial level of 110, likely secondary to beer potomania, and was admitted to ICU. Pt admits to drinking 6- 12 beers daily. Na+ was corrected slowly, nephrology consulted. Pt was taken off of his Losartan/HCTZ due to increased risk of dehydration, Losartan was restarted. Date of Encounter: 03/17/18 Time of Encounter: 08:50 - Discharge Diagnosis (1) Hyponatremia Priority: Secondary Status: Acute Assessment and Plan: Correcting slowly. Nephrology following. 128 today. Would like for it to be 130 or greater prior to discharge. Pt is asymptomatic at 128. Encourage fluid restriction at home, 1.5 liters daily Continue seizure precautions, telemetry, monitor labs. (2) Hypochloremia Priority: Secondary Status: Resolved Assessment and Plan: Resolved. (3) Alcohol abuse Priority: Secondary Status: Chronic Assessment and Plan: Chronic. CIWA remains available, however, pt is not using it. Seizure precautions in place. Pt states that he does not want to go to rehab and was not aware that 6-12 beers daily might be considered a lot. (4) Tobacco abuse Priority: Secondary Status: Acute Assessment and Plan: Pt continues to deny need for nicotine replacement therapy. Will order Nicoderm patches for prn use. Pt states that since he has not had a cigarette for so long, that he is going to quit. (5) DVT prophylaxis Priority: Secondary Status: Acute Assessment and Plan: Heparin SQ. Pt is ambulatory in the room and hallway. (6) Hypertension Priority: Secondary Status: Chronic Assessment and Plan: Hypertensive. Losartan/HCTZ was discontinued. Will restart Losartan 25mg po only due to increased risk of dehydration/ETOH intake. Monitor per admission orders. Qualifiers: Hypertension type: essential hypertension Qualified Code(s): I10 - Essential (primary) hypertension Hospital course: Mr. Noonan is a 62 year old male with past medical history of hypertension, tobacco abuse, alcohol abuse. Pt presented to ED with c/o SOB and "I felt like I was going to ." Pt was found to have hyponatremia and hypochloremia likely secondary to beer potomania. Pt reports drinking 6-12 beers daily and was taking a combination antihypertensive medication. Initial Na+ was 110 and was corrected with 0.9NS. He was admitted to ICU then transferred to for maintenance. Nephrology followed, pt corrected too rapidly and was put on D5W. He corrected to 128 and is asymptomatic at this time, however, would like pt to be 130 prior to discharge. Pt has been hypertensive, Losartan has been restarted. Pt states that he is going to stop smoking, but states that he does not want to stop smoking and states that he does not want information on rehabs. Pt will be discharged when sodium 130 or greater. Discharge discussed with: patient - Time Spent with Patient Total time spent providing and/or coordinating discharge services: Less than 30 minutes - Discharge Medications Prescriptions: Losartan [Cozaar] 25 mg PO DAILY #30 tablet Nicotine Patch [Nicoderm] 7 mg TD DAILY #30 patch.td24 Home Medications: Cetirizine HCl [All Day Allergy] 10 mg PO DAILY PRN 03/13/18 [History] Losartan/Hydrochlorothiazide [Losartan-Hctz 100-25 mg Tab] 1 tab PO DAILY [History] Folic Acid 1 mg PO DAILY #0 tablet 03/17/18 [Rx] Losartan [Cozaar] 25 mg PO DAILY #30 tablet 03/17/18 [Rx] Nicotine Patch [Nicoderm] 7 mg TD DAILY #30 patch.td24 03/17/18 [Rx] Thiamine (B-1) [Vitamin B-1] 100 mg PO DAILY tablet 03/17/18 [Rx] Vitamin B Complex/Vit C/Vit E [Stresstab] 1 each PO DAILY tablet 03/17/18 [Rx] Allergies/Adverse Reactions: 3 Allergy/AdvReac Type Severity Reaction Status Date / Time No Known Allergies Allergy Verified 03/13/18 15:30 Date of admission: 03/13/18 15:57 Primary care physician: Luther Figueroa Discharging clinician: Leah Lopez Anticipated date of discharge: 03/17/18 - Constitutional Vitals: Temp Pulse Resp BP Pulse Ox 98.5 F 87 16 134/91 100 03/17/18 11:07 03/17/18 11:07 03/17/18 11:07 03/17/18 11:07 03/17/18 11:07 General appearance: Present: cooperative, A&O X 3, pleasant, no acute distress, answers questions appropriately - Head Head exam: Present: atraumatic, normal inspection, normocephalic - Eye Eye exam: Present: normal appearance, conjuntiva pink, sclera anicteric - Neck Neck exam general surgery: Present: supple, trachea midline. Absent: lymphadenopathy, tenderness - Respiratory Respiratory exam: Present: CTAB. Absent: accessory muscle use, rales, rhonchi, wheezes - Cardiovascular Cardiovascular exam: Present: RRR, +S1, +S2. Absent: diastolic murmur, gallop, rubs, systolic murmur - GI/Abdominal GI/Abdominal exam: Present: normal bowel sounds, soft. Absent: distended, hepatomegaly, tenderness - Extremities Exam Extremities exam: Present: normal capillary refill, normal inspection, warm, radial pulses palpable and symmetrical. Absent: calf tenderness, cyanotic, pedal edema, tenderness - Neurological Exam Neurological exam: Present: alert, oriented X3, no focal deficits. Absent: altered, motor sensory deficit, facial droop, speech deficit - Skin Skin exam: Present: dry, intact, normal color, warm. Absent: rash - Patient Status Disposition: Home, Self-Care Condition: Good Functional capacity at discharge: independent ambulation Overall status at discharge: patient is progressing back to baseline - Discharge Instructions Follow Up With: Luther Figueroa DO [Primary Care Provider] - Additional Instructions: Please follow up with Dr. Figueroa in the next 5-7 days for a recheck. Have your sodium redrawn in 3 days, results to your PCP. Take your medications as directed. Your prescriptions are at your pharmacy, take your medications as directed. REturn to your normal diet and activities. Stop drinking alcohol and stop smoking - Diet and Activity Activity: increase activity as tolerated Diet: advance to your usual diet
[2018-03-18] MEDS: *HR* Heparin 5,000 UNIT/ML VIAL SQ SCH (05:47)
[2018-03-18 06:32] VITALS: BP 165/94
[2018-03-18] MEDS: Folic Acid 1 MG TABLET PO SCH (08:14)
[2018-03-18] MEDS: Thiamine (B-1) 100 MG TABLET PO SCH (08:14)
[2018-03-18] MEDS: Vitamin B Complex/Vit C/Vit E 1 EACH TABLET PO SCH (08:14)
[2018-03-18] MEDS: Nicotine 7 MG PATCH.TD24 TD SCH (08:14)
--- NOTE | 2018-03-18 09:56 | Event Note ---
Date of Encounter: 03/18/18 Time of Encounter: 09:54 Discussed case with nephrology and patient okay to discharge home with close outpatient follow-up for monitoring of repeat sodium level. RN called patient' s PCP office and was advised that we could not make an appointment for him the patient would have to call once he was discharged to schedule follow-up appointment. Patient did not want to wait to be seen and requested discharge as he was in alcohol withdrawal and wanted to go home and drink.
--- NOTE | 2018-03-18 11:11 | Nephrology Progress Note ---
Date of Encounter: 03/18/18 Time of Encounter: 11:10 - Assessment and Plan (1) Hyponatremia Status: Acute NA is 129, stable. (2) Hypochloremia Status: Resolved Resolved, 98. (3) Hypertension Status: Chronic Per primary team. Qualifiers: Hypertension type: essential hypertension Qualified Code(s): I10 - Essential (primary) hypertension (4) Alcohol abuse Status: Chronic Is on CIWA protocol and Thiamine. Subjective Principal diagnosis: Hyponatremia Interval history: Pt seen and examined, doing well. Objective - Vital Signs Vital signs: Vital Signs Temp Pulse Resp BP Pulse Ox 03/18/18 06:27 98.0 F 81 16 165/94 100 03/18/18 03:36 97.6 F 90 16 183/114 97 03/17/18 23:12 98.0 F 89 16 182/116 97 03/17/18 20:15 98.1 F 82 16 175/109 97 03/17/18 15:32 98.6 F 90 18 131/83 100 Intake and Output 03/17/18 03/18/18 03/18/18 23:59 07:59 15:59 Intake Total 240 / 240 480 / 480 240 / 240 Output Total 1300 / 1300 300 / 300 Balance 240 / 240 -820 / -820 -60 / -60 Intake: Oral 240 / 240 480 / 480 240 / 240 Output: Urine 1300 / 1300 300 / 300 Other: Meal Breakfast Percent of Meal Consumed 100% # Bowel Movement Diapers 0 Weight 96.2 kg Patient Weight 03/18/18 23:59 Weight 96.2 kg - General Appearance General appearance: Present: well-developed, well-nourished EENT: Present: ATNC, hearing intact, vision intact Respiratory: Present: clear Cardiology: Present: no edema, regular rate, regular rhythm, normal S1, normal S2 Gastrointestinal: Present: normoactive bowel sounds, no tenderness Integumentary: Present: no rash, warm and dry Neurologic: Present: alert and oriented x3 Psychiatric: Present: mood/affect appropriate, cooperative - Lab 03/17/18 02:10 03/18/18 05:57 Most recent lab results Calcium 9.4 mg/dL (8.6-10.3) 03/17/18 02:10 Phosphorus 3.2 mg/dL (2.7-4.5) 03/16/18 09:21 Magnesium 1.7 mg/dL (1.6-2.6) 03/14/18 03:57 Urine Sodium 23.1 mEq/L 03/13/18 22:28 Consult Discharge Plan - Plan Instructions: Nicotine (Absorbed through the skin), Losartan (By mouth), Hyponatremia (DC), Chronic Hypertension (DC) Additional Instructions: Please follow up with Dr. Figueroa in the next 5-7 days for a recheck. Have your sodium redrawn in 3 days, results to your PCP. Take your medications as directed. Your prescriptions are at your pharmacy, take your medications as directed. REturn to your normal diet and activities. Stop drinking alcohol and stop smoking Referrals: Luther Figueroa, [Primary Care Provider] - Prescriptions: Losartan [Cozaar] 25 mg PO DAILY #30 tablet Nicotine Patch [Nicoderm] 7 mg TD DAILY #30 patch.td24
== END 2018-03-18 11:46 | disposition home or self-care (01) | DRG 641 ==
LOC: EMEROO 10:27 → ICNU 15:57 → 3BNU 03-14 13:18
PROVIDERS: ADMIT Internal Medicine Pulmonary Disease; ATTEND Hospitalist

== ENCOUNTER 2018-06-04 19:16 | Inpatient (IN) ==
[2018-06-04] MEDS ORDERED: Ipratropium/Albuterol Neb 3 ML IH ONE ×2 (19:26→21:59)
[2018-06-04] MEDS ORDERED: predniSONE 20 MG TABLET PO ONE (19:26)
--- NOTE | 2018-06-04 19:58 | Emergency Department Note ---
Disposition Clinical Impression: COPD exacerbation Disposition: Still a Patient Condition: Fair Referrals: Luther Figueroa DO [Primary Care Provider] - Forms: ED Satisfaction Letter SOB HPI - General Chief Complaint: ED Shortness of Breath/Dyspnea Stated Complaint: SOB/JOAQUIN Time Seen by Provider: 06/04/18 19:26 Source: patient, family Mode of arrival: ambulatory Limitations: no limitations Nursing Notes Reviewed: Yes Vital Signs Reviewed: Yes - History of Present Illness 63 year old male with a history of hypertension, COPD presents for evaluation of dyspnea. Notes symptom onset is in the past 24 hours. Notes increasing work of breathing with increased use of nebs. Patient states he has been using his Spiriva as well as albuterol at home. Patient does not require oxygen at home. Patient does note a productive white sputum. No fevers. No chest pain. Patient states that he quit smoking approximately 3 months ago from a 50 pack year history. No abdominal pain. - Related Data Home Medications Medication Instructions Recorded Confirmed Cetirizine HCl [All Day Allergy] 10 mg PO DAILY PRN 03/13/18 05/08/18 Ascorbate Calcium [Vitamin C] 500 mg PO DAILY 05/08/18 05/08/18 Losartan Potassium [Cozaar] 100 mg PO DAILY 05/08/18 05/08/18 Previous Rx's Medication Instructions Recorded Albuterol Sulfate [Albuterol 2 puff IH Q4HR PRN #1 [email or web address] 05/01/18 Inhaler] Azithromycin [Zithromax] 500 mg PO DAILY 2 Days tablet 05/08/18 GuaiFENesin ER [Mucinex] 600 mg PO BID 7 Days tbbp.12hr 05/08/18 Tiotropium [Spiriva] 18 mcg IH QAM #1 unit 05/08/18 amLODIPine [Norvasc] 5 mg PO DAILY #30 tablet 05/08/18 levoFLOXacin [Levaquin] 750 mg PO DAILY #4 tablet 05/08/18 predniSONE [PredniSONE] 40 mg PO DAILY 4 Days tablet 05/08/18 Allergies Allergy/AdvReac Type Severity Reaction Status Date / Time No Known Allergies Allergy Verified 05/08/18 08:35 All systems ED: reviewed and negative except as stated. Constitutional: Denies: fever Cardiovascular: Denies: chest pain Respiratory: Reports: cough, dyspnea, wheezes, sputum production Gastrointestinal: Denies: abdominal pain, nausea, vomiting Past Medical History - Past Medical History Source: patient Medical history: Reports: hypertension Surgical history: Reports: no surgical history Psychiatric history: Reports: no psych history - Social History Smoking Status: Current every day smoker Smokeless Tobacco Status: No Alcohol use: Reports: occasionally Drug use: Reports: none Physical Exam - General Limitations: no limitations General appearance: alert, in no apparent distress - Head Head exam: atraumatic, normocephalic, normal inspection - Eye Eye exam: Present: normal appearance, PERRL, EOMI - ENT ENT exam: normal exam, mucous membranes moist - Neck Neck exam: Present: normal inspection - Chest Chest inspection: Present: normal inspection, symmetric chest wall rise - Respiratory Respiratory exam: Present: normal lung sounds bilaterally, wheezes (Scattered expiratory wheezes), prolonged expiratory phase - Cardiovascular Cardiovascular exam: Present: regular rate, normal rhythm. Absent: systolic murmur - Abdominal Exam Abdominal exam: Present: soft, Non-Tender - Extremities Exam Extremities exam: Present: normal inspection. Absent: pedal edema - Neurological Exam Neurological exam: Present: alert, oriented X3, CN II-XII intact - Skin Skin exam: Present: warm, dry, intact, normal color Course Course Narrative: Patient seen and examined. Patient will get labs, nebs and steroids with a chest x-ray. EKG is unremarkable. Disposition pending. - Reevaluation(s) Reevaluation #1: Patient seen and examined. Patient continues to have expiratory wheezes with rhonchorous breath sounds. Patient is scheduled to receive a second neb. Not requiring any oxygen. Time: 20:46 Vital Signs Temperature 97.8 F 06/04/18 19:19 Pulse Rate 92 06/04/18 19:19 Respiratory Rate 22 06/04/18 19:19 Blood Pressure 167/96 06/04/18 19:19 O2 Sat by Pulse Oximetry 95 06/04/18 19:19 Temperature 97.8 F 06/04/18 19:46 Pulse Rate 92 06/04/18 19:53 Respiratory Rate 18 06/04/18 19:53 Blood Pressure 166/94 06/04/18 19:53 O2 Sat by Pulse Oximetry 100 06/04/18 19:53 Oxygen Delivery Oxygen Delivery Nasal Cannula Shortness of Breath/Dyspnea - MDM Narrative Medical decision making narrative: Patient presents for evaluation of COPD exacerbation. Patient received 1 neb as scheduled 2 more nebs with by mouth steroids. Had basic labs that were obtained. Patient will be signed out to another provider. At this point disposition is pending. The patient feels well and is not hypoxic requiring increasing respiratory support the patient is appropriate for outpatient management however the patient needs to be further observed in the ED with continuing therapy. - Lab Data Lab results reviewed: Yes I reviewed the patient's lab results. Result diagrams: 06/04/18 20:22 06/04/18 20: Lab Results 06/04/18 06/04/18 Range/Units 20:22 20:22 WBC 8.1 (4.3-11.1) K/mcL RBC 3.60 L (4.19-5.50) M/mcL Hgb 12.1 L (12.9-16.9) g/dL Hct 34.0 L (37.5-50.1) % MCV 94.4 (83.0-100.0) fL MCH 33.6 H (28.0-33.3) pg MCHC 35.6 H (31.6-35.5) g/dL RDW 12.4 (11.5-14.5) % Plt Count 273 (140-400) K/mcL MPV 7.6 L (9.4-12.4) fL Immature Gran % 0.6 (0-4) % Seg Neutrophils % 46.2 % Lymphocytes % 24.5 % Monocytes % 9.6 % Eosinophils % 18.0 % Basophils % 1.1 % Neutrophils # 3.7 (1.6-8.9) K/mcL Lymphocytes # 2.0 (0.6-4.6) K/mcL Monocytes # 0.8 (0.0-1.3) K/mcL Eosinophils # 1.5 H (0.0-0.6) K/mcL Basophils # 0.1 (0.0-0.2) K/mcL Sodium 123 L (136-145) mEq/L Potassium 3.5 (3.5-5.1) mEq/L Chloride 94 L (98-107) mEq/L Carbon Dioxide 20 L (23-29) mEq/L BUN 10 (8-23) mg/dL Creatinine 0.89 (0.70-1.30) mg/dL Est GFR ( Amer) > 60 (> 60) Est GFR (Non-Af Amer) > 60 (> 60) BUN/Creatinine Ratio 11 (6-26) Glucose 110 H (70-105) mg/dL Calculated Osmolality 256 L (280-300) Calcium 9.0 (8.6-10.3) mg/dL - Radiology Data Radiology results reviewed: Yes I reviewed the patient's radiology results. Chest X-Ray 06/04/18 19:43 IMPRESSION: No acute consolidation. D/ / Raj Thomas MD / Raj Thomas MD Interpreting Provider: Raj Thomas MD - EKG Data EKG attestation: Yes I reviewed and interpreted this EKG. EKG shows normal: Reports: sinus rhythm Rate: Reports: normal Rhythm: Reports: NSR Velarde/QRS: Reports: normal Interpretation: Reports: no acute changes, nonspecific ST-T wave changes S.B.Kai - Tolu Situation: Demographics Background: Presenting Complaint Assessment: Vital Signs, Course and respsone to treatment, Patient/Family Expectation Recommendation: Barrier(s) to disposition, Recommendation based on pending studies, treatments, or consults S.B.AMartha Report Given to: Dr. Meghna Motley Repor Time: 20:47
[2018-06-04 20:34] LABS: Basophils # 0.1 K/mcL (0.0-0.2); Basophils % 1.1 %; Eosinophils # 1.5 K/mcL (0.0-0.6); Hemoglobin 12.1 g/dL (12.9-16.9); Immature Granulocytes % 0.6 % (0-4); Lymphocytes % 24.5 %; Mean Corpuscular HGB Conc 35.6 g/dL (31.6-35.5); Mean Corpuscular Hemoglobin 33.6 pg (28.0-33.3); Mean Corpuscular Volume 94.4 fL (83.0-100.0); Mean Platelet Volume 7.6 fL (9.4-12.4); Monocytes # 0.8 K/mcL (0.0-1.3); Monocytes % 9.6 %; Neutrophils # 3.7 K/mcL (1.6-8.9); Platelet Count 273 K/mcL (140-400); Red Cell Distribution Width 12.4 % (11.5-14.5); Segmented Neutrophils % 46.2 %
--- NOTE | 2018-06-04 20:38 | Emergency Department Note ---
Disposition Clinical Impression: COPD exacerbation Disposition: Still a Patient Referrals: Luther Figueroa DO [Primary Care Provider] - Forms: ED Satisfaction Letter Time of Disposition: 20:47 General Adult HPI - General Chief complaint: ED Shortness of Breath/Dyspnea Stated complaint: SOB/JOAQUIN Time Seen by Provider: 06/04/18 19:26 Source: patient, family Mode of arrival: ambulatory Limitations: no limitations - History of Present Illness Pain Scale: 0 - Related Data Home Medications Medication Instructions Recorded Confirmed Cetirizine HCl [All Day Allergy] 10 mg PO DAILY PRN 03/13/18 05/08/18 Ascorbate Calcium [Vitamin C] 500 mg PO DAILY 05/08/18 05/08/18 Losartan Potassium [Cozaar] 100 mg PO DAILY 05/08/18 05/08/18 Previous Rx's Medication Instructions Recorded Albuterol Sulfate [Albuterol 2 puff IH Q4HR PRN #1 hfa.aer.ad 05/01/18 Inhaler] Azithromycin [Zithromax] 500 mg PO DAILY 2 Days tablet 05/08/18 GuaiFENesin ER [Mucinex] 600 mg PO BID 7 Days tbbp.12hr 05/08/18 Tiotropium [Spiriva] 18 mcg IH QAM #1 unit 05/08/18 amLODIPine [Norvasc] 5 mg PO DAILY #30 tablet 05/08/18 levoFLOXacin [Levaquin] 750 mg PO DAILY #4 tablet 05/08/18 predniSONE [PredniSONE] 40 mg PO DAILY 4 Days tablet 05/08/18 Allergies Allergy/AdvReac Type Severity Reaction Status Date / Time No Known Allergies Allergy Verified 05/08/18 08:35 Constitutional: Denies: fever Cardiovascular: Denies: chest pain Respiratory: Reports: cough, dyspnea, wheezes, sputum production Gastrointestinal: Denies: abdominal pain, nausea, vomiting Past Medical History - Past Medical History Medical history: Reports: hypertension Surgical history: Reports: no surgical history Psychiatric history: Reports: no psych history - Social History Smoking Status: Current every day smoker Smokeless Tobacco Status: No Alcohol use: Reports: occasionally Drug use: Reports: none Physical Exam - General Limitations: no limitations General appearance: alert, in no apparent distress Course - Reevaluation(s) Reevaluation #1: we will sign patient out to Dr. Post. Plan is for him to complete his duonebs and then re-eval. If he is not better then to admit to medicine. If he is feeling better and not hypoxic then perhaps he can be discharged home Time: 20:47 Vital Signs Temperature 97.8 F 06/04/18 19:19 Pulse Rate 92 06/04/18 19:19 Respiratory Rate 22 06/04/18 19:19 Blood Pressure 167/96 06/04/18 19:19 O2 Sat by Pulse Oximetry 95 06/04/18 19:19 Temperature 97.8 F 06/04/18 19:46 Pulse Rate 92 06/04/18 19:53 Respiratory Rate 18 06/04/18 19:53 Blood Pressure 166/94 06/04/18 19:53 O2 Sat by Pulse Oximetry 100 06/04/18 19:53 Oxygen Delivery Oxygen Delivery Nasal Cannula Medical Decision Making - Lab Data Result diagrams: 06/04/18 20:22 Lab Results 06/04/18 Range/Units 20:22 WBC 8.1 (4.3-11.1) K/mcL RBC 3.60 L (4.19-5.50) M/mcL Hgb 12.1 L (12.9-16.9) g/dL Hct 34.0 L (37.5-50.1) % MCV 94.4 (83.0-100.0) fL MCH 33.6 H (28.0-33.3) pg MCHC 35.6 H (31.6-35.5) g/dL RDW 12.4 (11.5-14.5) % Plt Count 273 (140-400) K/mcL MPV 7.6 L (9.4-12.4) fL Immature Gran % 0.6 (0-4) % Seg Neutrophils % 46.2 % Lymphocytes % 24.5 % Monocytes % 9.6 % Eosinophils % 18.0 % Basophils % 1.1 % Neutrophils # 3.7 (1.6-8.9) K/mcL Lymphocytes # 2.0 (0.6-4.6) K/mcL Monocytes # 0.8 (0.0-1.3) K/mcL Eosinophils # 1.5 H (0.0-0.6) K/mcL Basophils # 0.1 (0.0-0.2) K/mcL Attestation Statement - Attestation Attestation: I examined this patient and my medical decision-making was reviewed with the Resident Physician. I agree with the documented findings, disposition and treatment plan as described except to the extent set forth below. 63 year old male presents to the ED with bronchitis and smokes daily althogh he states he has not been diagnosed with COPD and does not wear supplemental oxygen at home. Santo typially gets admitted the hospital on arrival he was 95 % and required 2LNC to bring him to 100%. He does appear midly dyspneinc and wheezing throughouut all rodríguez. Santo will reciev 3 treatment snad prednisione for therpay and then we will walk to him re-evlaute. Based on hypoxia or tachycardia or exertinal dypsnea we will dispositon patient
[2018-06-04 20:53] LABS: BUN/Creatinine Ratio 11 (6-26); Blood Urea Nitrogen 10 mg/dL (8-23); Carbon Dioxide 20 mEq/L (23-29); Chloride 94 mEq/L (98-107); Glucose 110 mg/dL (70-105); Osmolality,Calculated 256 (280-300); Potassium 3.5 mEq/L (3.5-5.1); Sodium 123 mEq/L (136-145); eGFR For Non-African Americans > 60 (> 60)
--- NOTE | 2018-06-04 21:59 | Emergency Department Note ---
Disposition Clinical Impression: COPD exacerbation Disposition: Admitted As Inpatient Condition: Fair Time of Disposition: 22:07 SOB HPI - General Chief Complaint: ED Shortness of Breath/Dyspnea Stated Complaint: SOB/JOAQUIN Time Seen by Provider: 06/04/18 19:26 Source: patient, family Mode of arrival: ambulatory Limitations: no limitations Nursing Notes Reviewed: Yes Vital Signs Reviewed: Yes - History of Present Illness Patient was signed out to me by daytime physician Dr. Echeverria and Dr. Sherman pending reevaluation and final disposition. Please see their note for further details. - Related Data Home Medications Medication Instructions Recorded Confirmed Cetirizine HCl [All Day Allergy] 10 mg PO DAILY PRN 03/13/18 06/04/18 Ascorbate Calcium [Vitamin C] 500 mg PO DAILY 05/08/18 06/04/18 Losartan Potassium [Cozaar] 100 mg PO DAILY 05/08/18 06/04/18 Previous Rx's Medication Instructions Recorded Albuterol Sulfate [Albuterol 2 puff IH Q4HR PRN #1 hfa.aer.ad 05/01/18 Inhaler] Tiotropium [Spiriva] 18 mcg IH QAM #1 unit 05/08/18 amLODIPine [Norvasc] 5 mg PO DAILY #30 tablet 05/08/18 Allergies Allergy/AdvReac Type Severity Reaction Status Date / Time No Known Allergies Allergy Verified 05/08/18 08:35 Constitutional: Denies: fever Cardiovascular: Denies: chest pain Respiratory: Reports: cough, dyspnea, wheezes, sputum production Gastrointestinal: Denies: abdominal pain, nausea, vomiting Past Medical History - Past Medical History Medical history: Reports: hypertension Surgical history: Reports: no surgical history Psychiatric history: Reports: no psych history - Social History Smoking Status: Current every day smoker Smokeless Tobacco Status: No Alcohol use: Reports: occasionally Drug use: Reports: none Physical Exam - General Limitations: no limitations General appearance: alert, in no apparent distress Course Course Narrative: Patient was signed out to me by daytime physician Dr. Echeverria and Dr. Sherman pending reevaluation and final disposition. Please see their note for further details. Teja is a 63-year-old male history of hypertension and COPD who presented for dyspnea. States the symptoms have been ongoing for the past 24 hours with increase worker breathing with cough. He has been using his breathing treatments more frequently with minimal improvement. He does not wear any oxygen at home. He was recently admitted for similar symptoms 1 month ago. He is scheduled to see a client renewal specialist in June roughly a month away. Patient denies any history of cancer or history of blood clots.During his ED course patient received oral prednisone and breathing treatment. He reported slight improvement. His labs were otherwise unremarkable. He has baseline chronic anemia that stable. He has chronic hyponatremia that is also stable. His chest x-ray did not reveal any acute consolidations. We attempted to ambulate him but he desaturated to 83% and felt more dyspnea con exertion multiple times. On reevaluation he continues to have persistent diffuse wheezing. He will be started on is 2nd DuoNeb burst. Will also start him on antibiotics given the report of white productive sputum. Patient is in agreement this plan. 63 year old male with a history of hypertension, COPD presents for evaluation of dyspnea. Impression is likely COPD exacerbation. Spoke with on-call hospitalist logan Lee to admit for COPD exacerbation. No further orders at this time Vital Signs Temperature 97.8 F 06/04/18 19:19 Pulse Rate 92 06/04/18 19:19 Respiratory Rate 22 06/04/18 19:19 Blood Pressure 167/96 06/04/18 19:19 O2 Sat by Pulse Oximetry 95 06/04/18 19:19 Temperature 97.5 F L 06/04/18 23:11 Pulse Rate 116 06/04/18 23:11 Respiratory Rate 20 06/04/18 23:11 Blood Pressure 143/88 06/04/18 23:11 O2 Sat by Pulse Oximetry 96 06/04/18 23:11 Oxygen Delivery Oxygen Delivery Nasal Cannula Shortness of Breath/Dyspnea - MDM Narrative Medical decision making narrative: Patient was discussed with my attending physician who agrees with ED management and final disposition. They independently evaluated the patient. Please refer to their attestation to this encounter for additional information. This note was generated by [employer] voice recognition software and as a result grammatical or spelling errors may occur using this program. - Medical Records Medical records reviewed: Yes I reviewed the patient's medical records. - Lab Data Lab results reviewed: Yes I reviewed the patient's lab results. Result diagrams: 06/04/18 20:22 06/04/18 20:22 Lab Results 06/04/18 06/04/18 Range/Units 20:22 20:22 WBC 8.1 (4.3-11.1) K/mcL RBC 3.60 L (4.19-5.50) M/mcL Hgb 12.1 L (12.9-16.9) g/dL Hct 34.0 L (37.5-50.1) % MCV 94.4 (83.0-100.0) fL MCH 33.6 H (28.0-33.3) pg MCHC 35.6 H (31.6-35.5) g/dL RDW 12.4 (11.5-14.5) % Plt Count 273 (140-400) K/mcL MPV 7.6 L (9.4-12.4) fL Immature Gran % 0.6 (0-4) % Seg Neutrophils % 46.2 % Lymphocytes % 24.5 % Monocytes % 9.6 % Eosinophils % 18.0 % Basophils % 1.1 % Neutrophils # 3.7 (1.6-8.9) K/mcL Lymphocytes # 2.0 (0.6-4.6) K/mcL Monocytes # 0.8 (0.0-1.3) K/mcL Eosinophils # 1.5 H (0.0-0.6) K/mcL Basophils # 0.1 (0.0-0.2) K/mcL Sodium 123 L (136-145) mEq/L Potassium 3.5 (3.5-5.1) mEq/L Chloride 94 L (98-107) mEq/L Carbon Dioxide 20 L (23-29) mEq/L BUN 10 (8-23) mg/dL Creatinine 0.89 (0.70-1.30) mg/dL Est GFR ( Amer) > 60 (> 60) Est GFR (Non-Af Amer) > 60 (> 60) BUN/Creatinine Ratio 11 (6-26) Glucose 110 H (70-105) mg/dL Calculated Osmolality 256 L (280-300) Calcium 9.0 (8.6-10.3) mg/dL - Radiology Data Radiology results reviewed: Yes I reviewed the patient's radiology results. Chest X-Ray 06/04/18 19:43 IMPRESSION: No acute consolidation. D/ / 06/04/2018 21:07:21 Raj Thomas MD / nereyda Interpreting Provider: Raj Thomas MD Attestation Statement - Attestation Attestation: I examined this patient and my medical decision-making was reviewed with the Resident Physician, Dr. Coffman. I agree with the documented findings, disposition and treatment plan as described except to the extent set forth below. Patient is a 63-year-old white male heavy smoker who presents with gradually worsening shortness of breath over the last 24 hours with wheezing and hypoxia on room air. Patient was signed out test by Dr. Echeverria and Dr. Sherman, with his workup completed with the exception of reassessment following steroids and breathing treatments to determine if the patient would improve and can go home. I agree with patient's physical exam findings as documented. Evaluation patient was sitting up on the edge of the bed with conversational dyspnea and audible wheezing with diffuse wheezing throughout on auscultation and he desaturated to 82% with ambulation. We will write for another breathing treatment and plan to admit the patient to the hospitalist service for further evaluation and management of acute exacerbation of COPD. Chest x-rays unremarkable. Patient agrees with this plan and case was discussed with hospitalist
[2018-06-04] MEDS ORDERED: cefTRIAXone 1,000 MG in Water for inj. (sterile) 20 ML 10 ML IVPB ONE (22:07)
[2018-06-04] MEDS ORDERED: Azithromycin 500 MG in D5% in Water 250 ML IVPB ONE (22:07)
[2018-06-04] MEDS ORDERED: Loratadine 10 MG TABLET PO PRN (22:46)
--- NOTE | 2018-06-04 23:00 | Internal Med History&Physical ---
Date of Encounter: 06/04/18 Time of Encounter: 22:56 Internal Medicine - H&P: HPI Chief complaint: SOB Admitted From: Home Plans for Post Hospital Care: Home History of present illness: Mr. Noonan is a 63 year old man with a history of hypertension and COPD (not on home O2) who presents for evaluation of dyspnea. He states that after the past week he has been having increasing dyspnea and a dry cough however over the last 24 hours his shortness of breath has significantly worsened. He was seen to have labored breathing in the ER and was promptly placed on nebulizer therapy and given 1 dose of prednisone 60mg. After evaluation in the ER with plans for discharge, a walking test was performed where he had to stop 3 times and his oxygen saturation dropped to 83% on room air. He was placed back on supplemental oxygen. On my assessment, he had labored breathing and needed to sit up right to catch his breath. He could not speak in full sentences and his at bedside provided the bulk of information. She reports that he quit smoking 3 months ago after a 50 pack year history. His cough is more dry than productive but when he does expectorate it is whitish. He denies having fever, chills or chest pain. When asked about his medications, he only uses albuterol prn and tiotropium daily. Past Med Surg Social Fam HX - Past Medical History Medical history: hypertension Psychiatric history: no psych history - Past Surgical History Surgical History: no surgical history - Social History Smoking Status: Current every day smoker Smokeless Tobacco Status: No Alcohol use: occasionally Drug use: none Internal Medicine - H&P: Meds Cetirizine HCl [All Day Allergy] 10 mg PO DAILY PRN 03/13/18 [History] Albuterol Sulfate [Albuterol Inhaler] 2 puff IH Q4HR PRN #1 hfa.aer.ad 05/01/18 [Rx] Ascorbate Calcium [Vitamin C] 500 mg PO DAILY 05/08/18 [History] Losartan Potassium [Cozaar] 100 mg PO DAILY 05/08/18 [History] Tiotropium [Spiriva] 18 mcg IH QAM #1 unit 05/08/18 [Rx] amLODIPine [Norvasc] 5 mg PO DAILY #30 tablet 05/08/18 [Rx] 3 Allergy/AdvReac Type Severity Reaction Status Date / Time No Known Allergies Allergy Verified 05/08/18 08:35 ROS unobtainable: due to mental status All Systems PM: A 10-system review of systems was performed and is negative for pertinent findings except as documented above in the HPI. - Constitutional Vitals: Temp Pulse Resp BP Pulse Ox 97.8 F 92 16 166/94 98 06/04/18 19:46 06/04/18 19:53 06/04/18 22:15 06/04/18 19:53 06/04/18 22:15 Exam: Vitals: Reviewed General: Well developed white man sitting up in bed with labored breathing. Skin: Flushed. No ulcers or lesions. HEENT: Moist mucous membranes. No conjunctivae pallor. Neck: No lymphadenopathy. No JVD. No carotid bruits. No palpable thyroid. Chest: Diminished thoracic expansion. Diffuse wheezing and rhonchi in both lung rodríguez. Heart: Normal S1 & S2; rhythmic. Abdomen: Non-distended, soft and non-tender to palpation. Extremities: (+) clubbing but no cyanosis or edema. No calf tenderness. Normal distal pulses. Neurological: Awake, alert and oriented to person, place and time. No focal deficits. Psych: Affect appropriate. Internal Med - H&P Results - Labs CBC & Chem 7: 06/04/18 20:22 06/04/18 20:22 - Assessment and plan (1) Acute respiratory failure with hypoxia Current Visit: Yes Status: Acute Assessment and plan: Due to a severe COPD exacerbation. Will place him on continous oximetry with supplemental O2 to maintain saturation above 92%. Albuterol/ipratropium nebulizer therapy every 4 hours Prednisone 60 mg daily Azithromycin 500 mg 3 days Evaluation for home oxygen before he goes home. (2) COPD exacerbation Current Visit: Yes Status: Acute Assessment and plan: As indicated above. Associated with tobacco dependence. Does not seem to have an acute infectious process as a trigger and x-ray not depictive of consolidation. I am concerned that he is not using adequate therapy as he is only on albuterol as needed and tiotropium daily. He should be placed on LABA/ ICS combination therapy as well before he goes home and follow-up with pulmonary as an outpatient. (3) Hypertension Current Visit: Yes Status: Chronic Assessment and plan: Poorly controlled based on recent values but may be related to current stress episode. Will resume amlodipine and losartan home medications and monitor. Qualifiers: Hypertension type: essential hypertension Qualified Code(s): I10 - Essential (primary) hypertension (4) Hyponatremia Current Visit: Yes Status: Chronic Assessment and plan: Appears to be a chronic entity and may be related to chronic lung disease. Further work up can be done as an outpatient as he is currently asymptomatic from this. (5) DVT prophylaxis Current Visit: Yes Status: Acute Assessment and plan: SubQ heparin ordered. - Time Spent With Patient Total time spent is greater than 50% in coordination of care (as documented) at patient's floor/unit and/or counseling patient: Greater than 35 minutes
[2018-06-04] MEDS: Ipratropium/Albuterol Neb 3 ML IH SCH (23:04)
[2018-06-05] MEDS: Ipratropium/Albuterol Neb 3 ML IH SCH ×6 (04:08→23:20)
--- NOTE | 2018-06-05 08:19 | Electrocardiograph Report ---
[place] [id number] Test Date: 2018-06-04 Pat Name: Mg Noonan Department: Room: [facility] Gender: M Site Inspector: : [id number] Requested By: Bassam Echeverria Order Number: [id number] Reading MD: Radha Chavez Measurements Intervals [place] Rate: 90 P: 82 ND: 168 QRS: 92 QRSD: 105 T: 42 QT: 359 QTc: 440 Interpretive Statements Sinus rhythm Right axis deviation Nonspecific ST abnormalities Possible old inferior [place] Electronically Signed On 06-05-2018 8:17:48 EDT by Radha Chavez
[2018-06-05] MEDS: predniSONE 20 MG TABLET PO SCH (08:33)
[2018-06-05] MEDS: amLODIPine 5 MG TABLET PO SCH (08:33)
[2018-06-05] MEDS: Ascorbic Acid 500 MG TABLET PO SCH (08:34)
[2018-06-05] MEDS: Azithromycin 250 MG TABLET PO SCH (08:34)
--- NOTE | 2018-06-05 09:16 | Internal Med Progress Note ---
<Ana Kincaid - Last Filed: 06/05/18 14:30> Hospitalist Progress Note - Encounter Date of Encounter: 06/05/18 Time of Encounter: 09:14 - Subjective Interval History: Patient is a 63 yo M with history of COPD and HTN who presented to the emergency department on 06/04/18 with complaints of shortness of breath. He required oxygen supplementation and duonebs with improvement in his symptoms. He was to be discharged home but his sats went down to 83% when walking. Today the patient states he is feeling much improved. He still feels mildly short of breath but is no longer requiring oxygen. He is able to speak in full sentences and is eating and drinking well. - Exam Vitals: Temp Pulse Resp BP Pulse Ox 97.6 F 110 17 157/93 99 06/05/18 07:48 06/05/18 07:48 06/05/18 07:48 06/05/18 07:48 06/05/18 07:48 Exam: General: Well developed white man sitting up in bed with slight increased respiratory effort but he speaks in full sentences and follows commands well Skin: Flushed. No ulcers or lesions. HEENT: Moist mucous membranes. No conjunctivae pallor. Neck: No lymphadenopathy. No JVD. No carotid bruits. No palpable thyroid. Chest: Slightly tachypnic. Slight diffuse wheezing in both lung ordríguez, worse in the RLL Heart: Tachycardic. Normal S1 & S2; No murmurs or rubs Abdomen: Non-distended, soft and non-tender to palpation. Extremities: (+) clubbing but no cyanosis or edema. No calf tenderness. Normal distal pulses. Neurological: Awake, alert and oriented to person, place and time. No focal deficits. Psych: Normal affect and mood - Assessment and Plan (1) COPD exacerbation Current Visit: Yes Status: Acute Assessment and Plan: - Patient continues on duonebs, azithromycin 500mg, and prednisone 60mg - Patient notes requiring oxygen at this point, will give prn - On tiotropium and albuterol as an outpatient, may require the addition of a LABA or LABA/ICS as he has had multiple exacerbations in the past few months since cessation of smoking - Will obtain walking pulse ox monitoring prior to discharge to assess the need for home oxygen (2) Hyponatremia Current Visit: Yes Status: Acute Assessment and Plan: - Today 123, likely his baseline is a around 130 - Previously admitted with Na of 108 likely due to alcohol abuse - was previously on HCTZ, now discontinued - Will continue to monitor (3) Alcohol abuse Current Visit: Yes Status: Chronic Assessment and Plan: - Reportedly drinks 4-6 beers per day - On CIWA protocol with prn ativan (4) Hypertension Current Visit: Yes Status: Chronic Assessment and Plan: - Continue on home losartan 100 and norvasc 5mg (5) Tobacco abuse Current Visit: No Status: Resolved Assessment and Plan: - No longer smoking, quit about 3 months ago but has 50 year smoking history (6) DVT prophylaxis Current Visit: Yes Status: Acute Assessment and Plan: - On heparin 5000 q 8 - Time Spent with Patient Total time spent is greater than 50% in coordination of care (as documented) at patient's floor/unit and/or counseling patient: Internal Medicine: Result - Labs CBC & Chem 7: 06/04/18 20:22 06/04/18 20:22 Consult Discharge Plan - Plan Referrals: Luther Figueroa DO [Primary Care Provider] - Kari Hudson [Resident] - <Betina Gonzalez - Last Filed: 06/05/18 21:41> Hospitalist Progress Note - Encounter Date of Encounter: 06/05/18 - Exam Vitals: Temp Pulse Resp BP Pulse Ox 97.8 F 97 18 150/87 96 06/05/18 21:09 06/05/18 21:09 06/05/18 21:09 06/05/18 21:09 06/05/18 21:09 - Assessment and Plan (1) Hyponatremia Current Visit: Yes Status: Acute (2) DVT prophylaxis Current Visit: Yes Status: Acute (3) Hypertension Current Visit: Yes Status: Chronic (4) Acute respiratory failure with hypoxia Current Visit: Yes Status: Acute (5) COPD exacerbation Current Visit: Yes Status: Acute - Time Spent with Patient Total time spent is greater than 50% in coordination of care (as documented) at patient's floor/unit and/or counseling patient: Internal Medicine: Result - Labs CBC & Chem 7: 06/04/18 20:22 06/04/18 20:22 - Attending Attestation I examined this patient and my medical decision-making was reviewed with the Resident Physician Dr. Hart. I agree with the documented findings, disposition and treatment plan as described except to the extent set forth below. <Ana Kincaid - Last Filed: 06/05/18 14:30> (4) Hypertension Qualifiers: Hypertension type: essential hypertension Qualified Code(s): I10 - Essential (primary) hypertension <Betina Gonzalez - Last Filed: 06/05/18 21:41> (3) Hypertension Qualifiers: Hypertension type: essential hypertension Qualified Code(s): I10 - Essential (primary) hypertension
[2018-06-05] MEDS: *HR* Heparin 5,000 UNIT/ML VIAL SQ SCH ×2 (11:18→20:29)
[2018-06-05] MEDS ORDERED: *HR* LORazepam 2 MG/ML VIAL IVP PRN ×2 (11:46)
[2018-06-05] MEDS ORDERED: Thiamine (B-1) 100 MG, Folic Acid 1 MG, MVI, adult with vitamin K 10 ML in 0.9 % Sodi... IVPB SCH (18:00)
[2018-06-06] MEDS: Ipratropium/Albuterol Neb 3 ML IH SCH ×2 (04:37→07:41)
[2018-06-06 05:07] LABS: Basophils # 0.1 K/mcL (0.0-0.2); Basophils % 0.4 %; Eosinophils # 0.6 K/mcL (0.0-0.6); Eosinophils % 4.6 %; Hematocrit 33.9 % (37.5-50.1); Hemoglobin 11.9 g/dL (12.9-16.9); Immature Granulocytes % 0.6 % (0-4); Lymphocytes # 1.7 K/mcL (0.6-4.6); Lymphocytes % 13.2 %; Mean Corpuscular HGB Conc 35.1 g/dL (31.6-35.5); Mean Corpuscular Hemoglobin 33.7 pg (28.0-33.3); Mean Platelet Volume 8.2 fL (9.4-12.4); Monocytes # 1.1 K/mcL (0.0-1.3); Monocytes % 8.8 %; Neutrophils # 9.1 K/mcL (1.6-8.9); Platelet Count 344 K/mcL (140-400); Red Blood Count 3.53 M/mcL (4.19-5.50); Red Cell Distribution Width 12.8 % (11.5-14.5); Segmented Neutrophils % 72.4 %
[2018-06-06 05:28] LABS: BUN/Creatinine Ratio 18 (6-26); Blood Urea Nitrogen 14 mg/dL (8-23); Calcium 9.3 mg/dL (8.6-10.3); Carbon Dioxide 20 mEq/L (23-29); Chloride 103 mEq/L (98-107); Glucose 120 mg/dL (70-105); Osmolality,Calculated 278 (280-300); Potassium 3.7 mEq/L (3.5-5.1); Sodium 133 mEq/L (136-145); eGFR For Non-African Americans > 60 (> 60)
[2018-06-06] MEDS: *HR* Heparin 5,000 UNIT/ML VIAL SQ SCH (06:16)
[2018-06-06 07:34] VITALS: BP 144/89
[2018-06-06] MEDS: Ascorbic Acid 500 MG TABLET PO SCH (08:19)
[2018-06-06] MEDS: Azithromycin 250 MG TABLET PO SCH (08:19)
[2018-06-06] MEDS: amLODIPine 5 MG TABLET PO SCH (08:19)
[2018-06-06] MEDS: predniSONE 20 MG TABLET PO SCH (08:19)
--- NOTE | 2018-06-06 09:06 | Discharge Summary ---
<Ana Kincaid - Last Filed: 06/06/18 12:55> - NOTES TO OUTPATIENT PROVIDER Notes to Outpatient Provider: Added Symbicort 80/4.5, 2 puffs BID and given 5 day burst of prednsione 60mg in hospital and 40mg q day as outpatient. Alcohol cessation counseling given Orders not resulted at time of discharge: Pending orders 06/07/18 04:00 BMP [Basic Metabolic Panel] AM 0400 Complete Blood Count [HEME] AM 0400 Date of Encounter: 06/06/18 Time of Encounter: 09:03 - Discharge Diagnosis (1) COPD exacerbation Priority: Primary Status: Acute (2) Hyponatremia Priority: Secondary Status: Acute (3) Alcohol abuse Priority: Secondary Status: Chronic (4) Hypertension Priority: Secondary Status: Chronic Qualifiers: Hypertension type: essential hypertension Qualified Code(s): I10 - Essential (primary) hypertension (5) Tobacco abuse Priority: Secondary Status: Resolved (6) DVT prophylaxis Priority: Secondary Status: Acute Hospital course: Mr. Noonan is a 63 year old male with history of HTN, COPD, alcohol abuse, who was admitted 06/04/18 for COPD exacerbation. He has a 50 pack year history and quit 3 months ago. At home he is only on tiotropium and albuterol. In the ED, his oxygen saturation dropped to 83% when walking. He was started on duonebs, prednisone 60mg daily, and Azithromycin 500mg with improvement in his symptoms. Patient was also found to be hyponatremic at 123 (baseline likely ~130), which improved to 133 with 2L fluid restriction. CIWA protocol revealed no evidence of withdrawal. On day of discharge he denied shortness of breath, could speak in full sentences, was satting 96% on room air, and passed a 6 minute walk test with lowest saturation after walking being 92%. He will continue his albuterol and tiotropium as outpatient and add symbicort to his regimen. Prescription given for 2 more days of azithromycin 500mg daily, prednisone 40mg q day for 2 more days, along with symbicort 80/4.5, 2 puffs per day given this is his second COPD exacerbation in so many months. Patient is to follow up with his primary care physician within the next week for continued care. Encouraged him to decrease his alcohol intake. Encouraged him to return to the emergency department should he develop any worsening shortness of breath, chest pain, or any other symptoms worrisome to him. The patient agrees with and understands the course of treatment plan including plan for discharge and follow up. All questions answered. Discharge discussed with: patient, nurse Time spent discussing smoking cessation with patient: 3 to 10 minutes (patient is no longer smoking, quit 3 months ago) - Time Spent with Patient Total time spent providing and/or coordinating discharge services: Greater than 30 minutes - Discharge Medications Prescriptions: Azithromycin [Zithromax] 500 mg PO DAILY 2 Days #4 tablet Budesonide/Formoterol 80/4.5 [Symbicort 80/4.5] 2 puff IH BID #1 inhaler predniSONE [PredniSONE] 40 mg PO DAILY 2 Days #4 tablet Home Medications: Cetirizine HCl [All Day Allergy] 10 mg PO DAILY PRN 03/13/18 [History] Albuterol Sulfate [Albuterol Inhaler] 2 puff IH Q4HR PRN #1 [email or web address] 05/01/18 [Rx] Ascorbate Calcium [Vitamin C] 500 mg PO DAILY 05/08/18 [History] Losartan Potassium [Cozaar] 100 mg PO DAILY 05/08/18 [History] Tiotropium [Spiriva] 18 mcg IH QAM #1 unit 05/08/18 [Rx] amLODIPine [Norvasc] 5 mg PO DAILY #30 tablet 05/08/18 [Rx] Azithromycin [Zithromax] 500 mg PO DAILY 2 Days #4 tablet 06/06/18 [Rx] Budesonide/Formoterol 80/4.5 [Symbicort 80/4.5] 2 puff IH BID #1 inhaler [Rx] predniSONE [PredniSONE] 40 mg PO DAILY 2 Days #4 tablet 06/06/18 [Rx] Allergies/Adverse Reactions: 3 Allergy/AdvReac Type Severity Reaction Status Date / Time No Known Allergies Allergy Verified 05/08/18 08:35 Date of admission: 06/04/18 22:24 Primary care physician: Luther Manley Colopy Consults: 06/05/18 11:46 Consult to Refinery Operator [CONS] Routine Reason for SW Consult: chronic alcoholic Discharging clinician: Ana Kincaid Anticipated date of discharge: 06/06/18 - Constitutional Vitals: Temp Pulse Resp BP Pulse Ox 98 F 92 19 144/89 96 06/06/18 07:30 06/06/18 07:30 06/06/18 07:30 06/06/18 07:30 06/06/18 07:30 Exam: General: Well developed white man sitting up in bed. He speaks in full sentences and follows commands well even after 6 minute walk test Skin: Flushed. No ulcers or lesions. HEENT: Moist mucous membranes. No conjunctivae pallor. Neck: No lymphadenopathy. No JVD. No carotid bruits. No palpable thyroid. Chest: Slight diffuse wheezing in both lung rodríguez, worse in the RLL, improved air movement throughout. Saturating in high 90s on RA Heart: Tachycardic. Normal S1 & S2; No murmurs or rubs Abdomen: Non-distended, soft and non-tender to palpation. Extremities: (+) clubbing but no cyanosis or edema. No calf tenderness. Normal distal pulses. Neurological: Awake, alert and oriented to person, place and time. No focal deficits. Psych: Normal affect and mood - Patient Status Disposition: Home, Self-Care Condition: Good Functional capacity at discharge: independent ambulation Overall status at discharge: patient is progressing back to baseline - Discharge Instructions Instructions: Acute Respiratory Distress Syndrome (DC), Chronic Obstructive Pulmonary Disease (GEN) Follow Up With: Angel Valderrama [Resident] - 06/11/18 4:00 pm Additional Instructions: - Please follow up with your primary care physician to reassess your COPD medication regimen. - Please continue taking prednisone 60mg for the next 3 days. - Please make an attempt to cut back your daily drinking. - Return to the emergency department should you develop any chest pain, worsening shortness of breath, or any other symptoms worrisome to you. - Diet and Activity Activity: increase activity as tolerated Diet: advance to your usual diet <Betina Gonzalez - Last Filed: 06/06/18 21:58> Date of Encounter: 06/06/18 - Discharge Diagnosis (1) Hyponatremia Status: Acute (2) DVT prophylaxis Status: Acute (3) Hypertension Status: Chronic Qualifiers: Hypertension type: essential hypertension Qualified Code(s): I10 - Essential (primary) hypertension (4) Acute respiratory failure with hypoxia Status: Acute (5) COPD exacerbation Status: Acute Hospital course: Mr. Noonan is a 63 year old male - Time Spent with Patient Total time spent providing and/or coordinating discharge services: Date of admission: 06/04/18 22:24 Primary care physician: Luther Figueroa Consults: 06/05/18 11:46 Consult to Refinery Operator [CONS] Routine Reason for SW Consult: chronic alcoholic - Constitutional Vitals: Temp Pulse Resp BP Pulse Ox 98 F 92 20 144/89 96 06/06/18 07:30 06/06/18 07:30 06/06/18 07:41 06/06/18 07:30 06/06/18 07:41 - Attending Attestation I examined this patient and my medical decision-making was reviewed with the Resident Physician Dr. Hart. I agree with the documented findings, disposition and treatment plan as described except to the extent set forth below.
== END 2018-06-06 11:28 | disposition home or self-care (01) | DRG 190 ==
LOC: 2NENU 19:16 → EMEROOARM 19:16 → SUATTDRO 22:24 → 2NENU 23:05
PROVIDERS: ADMIT Internal Medicine; ATTEND Student in an Organized Health Care Education/Training Program